=== PATIENT | female | born 1945 | race Caucasian/White ===

== ENCOUNTER 2017-02-28 22:00 | Inpatient (IN) ==
[2017-03-01] MEDS: *HR* HYDROcodone/Acet 7.5/325 mg TABLET PO PRN ×4 (05:16→20:35)
[2017-03-01 05:32] LABS: INR 1.5; Prothrombin Time 16.8 Seconds (9.4-12.1)
[2017-03-01 05:35] LABS: Basophils % 0.3 %; Eosinophils # 0.1 K/mcL (0.0-0.6); Eosinophils % 1.6 %; Hematocrit 32.4 % (35.3-44.9); Hemoglobin 10.7 g/dL (11.5-15.4); Immature Granulocytes % 0.9 % (0-4); Lymphocytes # 1.3 K/mcL (0.6-4.6); Lymphocytes % 18.9 %; Mean Corpuscular Hemoglobin 30.4 pg (28.0-33.3); Mean Platelet Volume 11.2 fL (9.4-12.4); Monocytes # 0.7 K/mcL (0.0-1.3); Monocytes % 9.8 %; Neutrophils # 4.7 K/mcL (1.6-8.9); Platelet Count 134 K/mcL (140-400); Red Blood Count 3.52 M/mcL (3.82-4.97); Red Cell Distribution Width 16.1 % (11.5-14.5); Segmented Neutrophils % 68.5 %
[2017-03-01 05:43] LABS: Calcium 8.6 mg/dL (8.6-10.8); Potassium 4.5 mEq/L (3.5-4.5)
[2017-03-01] MEDS: *HR* Amiodarone 200 MG TABLET PO SCH (08:35)
[2017-03-01] MEDS: Cholecalciferol (D-3) 1,000 UNIT TABLET PO SCH (08:36)
[2017-03-01] MEDS: Lisinopril 20 MG TABLET PO SCH ×2 (08:36→20:35)
[2017-03-01] MEDS: Cyanocobalamin (B-12) 1,000 MCG TABLET PO SCH (08:36)
[2017-03-01] MEDS: BIOTIN 1 MG PO SCH (08:36)
--- NOTE | 2017-03-01 11:30 | Internal Med History&Physical ---
Date of Encounter: 03/01/17 Time of Encounter: 11:28 Assessment and Plan (1) Humeral surgical neck fracture Current visit: Yes Status: Acute All patient's in a sling and is nonweightbearing in the right upper extremity. Qualifiers: Qualified Code(s): S42.211S - Unspecified displaced fracture of surgical neck of right humerus, sequela (2) Inability to ambulate due to knee Current visit: Yes Status: Acute This is improving. She has been ambulated with PT today. There is a brace present. But she has a heme arthrosis of the right knee (3) Anticoagulated on Coumadin Current visit: No Status: Chronic We will start the Coumadin back which was held for 3 to (4) Acute kidney injury superimposed on chronic kidney disease Current visit: No Status: Acute We will follow renal function (5) Type 2 diabetes mellitus Current visit: No Status: Chronic Follow blood sugars Qualifiers: Chronic kidney disease stage: stage 2 (mild) (6) Hemarthrosis involving knee joint Current visit: Yes Status: Acute Hemarthrosis was noted and that is why the Coumadin was held and will be followed Qualifiers: (7) Rib fractures Current visit: No Status: Suspected Noted. States there is no pain. Qualifiers: Qualified Code(s): S22.39XD - Fracture of one rib, unspecified side, subsequent encounter for fracture with routine healing Internal Medicine - H&P: HPI Chief complaint: Multiple trauma. Admitted From: Hospital to Hospital Transfer Plans for Post Hospital Care: Home History of present illness: Ms. Wood is a 71 year old female Patient was pulling weeds in her garden when she slipped and fell landed on her right side and fractured her humerus and her knee. Past Med Surg Social Fam HX - Past Medical History Medical history: atrial fibrillation, CHF, diabetes, GERD, hyperlipidemia, hypertension, myocardial infarction, renal disease Psychiatric history: no psych history - Past Surgical History Surgical History: cholecystectomy, pacemaker/AICD - Social History Smoking Status: Former smoker Smokeless Tobacco Status: No Alcohol use: none Drug use: none - Family History Mother Living Status: Hx Family Endocrine Disorder: Yes (diabetes) Father Living Status: Hx Family Cardiac Disorders: Yes Internal Medicine - H&P: Meds Acetaminophen [Tylenol] 500 mg PO Q6H PRN 02/26/17 [History] Allopurinol [Zyloprim 100 MG] 100 mg PO BID 02/26/17 [History] Amiodarone [Cordarone] 400 mg PO QAM 02/26/17 [History] Biotin 1 mg PO DAILY 02/26/17 [History] Calcitriol [Rocaltrol] 0.25 mcg PO DAILY 02/26/17 [History] Cholecalciferol (D-3) [Vitamin D] 3,000 unit PO DAILY 02/26/17 [History] Cyanocobalamin (Vitamin B-12) [Vitamin B-12] 250 mcg PO DAILY 02/26/17 [History] Enalapril Maleate [Vasotec] 20 mg PO BID 02/26/17 [History] Furosemide [Lasix] 40 mg PO Q48H 02/26/17 [History] Metoprolol [Lopressor] 25 mg PO BID 02/26/17 [History] Omeprazole [PriLOSEC] 20 mg PO BID 02/26/17 [History] Oxycodone HCl/Acetaminophen [Percocet 5-325 mg Tablet] 1 each PO BID PRN [History] Potassium Chloride [Klor-Con 10] 10 meq PO DAILY 02/26/17 [History] Warfarin [Coumadin] 1 mg PO Q48H 02/26/17 [History] Warfarin [Coumadin] 2 mg PO Q48H 02/26/17 [History] Docusate [Colace] 100 mg PO BID PRN #30 02/28/17 [Rx] HYDROcodone/Acet 7.5/325 mg [Fraser 7.5-325 mg] 1 tab PO Q4HR PRN #25 tab [Rx] Allergies Sulfa (Sulfonamide Antibiotics) Allergy (Verified 02/26/17 14:01) Hives All Systems PM: A 10-system review of systems was performed and is negative for pertinent findings except as documented above in the HPI. - Constitutional Vitals: Temp Pulse Resp BP Pulse Ox 98.0 F 60 16 130/62 95 03/01/17 06:45 03/01/17 08:09 03/01/17 08:09 03/01/17 08:09 03/01/17 08:09 - Head Head exam: Present: normal inspection - Neck Neck exam general surgery: Present: supple, trachea midline. Absent: lymphadenopathy - Respiratory Respiratory exam: Present: CTAB. Absent: accessory muscle use, rales, rhonchi, wheezes - Cardiovascular Cardiovascular exam: Present: RRR, +S1, +S2. Absent: diastolic murmur, gallop, rubs, systolic murmur - Expanded Upper Extremities Exam Shoulder exam: Present: tenderness (Patient is in sling for upper humeral fracture) Internal Med - H&P Results - Labs CBC & Chem 7: 03/01/17 05:00 03/01/17 05:00 Labs: Short CBC 03/01/17 Range/Units 05:00 WBC 6.9 (4.3-11.1) K/mcL Hgb 10.7 L (11.5-15.4) g/dL Hct 32.4 L (35.3-44.9) % Plt Count 134 L (140-400) K/mcL Neutrophils # 4.7 (1.6-8.9) K/mcL BMP 03/01/17 05:00 Sodium 136 Potassium 4.5 Chloride 106 Carbon Dioxide 21 BUN 31 H Creatinine 1.58 H Glucose 98 Calcium 8.6 Lab looks good watch the BUN - VTE Documentation of Mechanical Device: Graduated compression elastic hosiery
[2017-03-02] MEDS: Furosemide 40 MG TABLET PO SCH (08:21)
[2017-03-02] MEDS: Cholecalciferol (D-3) 1,000 UNIT TABLET PO SCH (08:22)
[2017-03-02] MEDS: *HR* Amiodarone 200 MG TABLET PO SCH (08:23)
[2017-03-02] MEDS: Lisinopril 20 MG TABLET PO SCH ×2 (08:23→20:59)
[2017-03-02] MEDS: Cyanocobalamin (B-12) 1,000 MCG TABLET PO SCH (08:23)
[2017-03-02] MEDS: *HR* HYDROcodone/Acet 7.5/325 mg TABLET PO PRN ×3 (08:24→20:59)
[2017-03-02] MEDS: BIOTIN 1 MG PO SCH (08:24)
--- NOTE | 2017-03-02 13:08 | Internal Med Progress Note ---
Date of Encounter: 03/02/17 Time of Encounter: 12:00 - Assessment and plan (1) Humeral surgical neck fracture Current Visit: Yes Status: Acute Assessment and plan: Patient's unable to weight-bear use the arm due to the humeral fracture Qualifiers: Encounter type: subsequent encounter Fracture healing: with routine healing Qualified Code(s): S42.211D - Unspecified displaced fracture of surgical neck of right humerus, subsequent encounter for fracture with routine healing (2) Inability to ambulate due to knee Current Visit: Yes Status: Acute Assessment and plan: Unable to weight-bear at this point due to knee injury (3) Anticoagulated on Coumadin Current Visit: No Status: Chronic Assessment and plan: After 3 days we have been instructed to restart her Coumadin (4) Acute kidney injury superimposed on chronic kidney disease Current Visit: No Status: Acute Assessment and plan: Appears to be stable (5) Type 2 diabetes mellitus Current Visit: No Status: Chronic Assessment and plan: Watchers being followed Qualifiers: Chronic kidney disease stage: stage 2 (mild) Qualified Code(s): E11.22 - Type 2 diabetes mellitus with diabetic chronic kidney disease; N18.2 - Chronic kidney disease, stage 2 (mild); Z79.4 - termite renewal inspector (current) use of insulin (6) Hemarthrosis involving knee joint Current Visit: Yes Status: Acute Assessment and plan: This is probably what is causing the pain and knee problem Qualifiers: (7) Rib fractures Current Visit: No Status: Suspected Assessment and plan: Denies any pain in the ribs Qualifiers: Qualified Code(s): S22.39XD - Fracture of one rib, unspecified side, subsequent encounter for fracture with routine healing - Time Spent With Patient less than 15 minutes - Subjective Interval history: Patient's here for rehabilitation is no complaints and doing okay - Constitutional Vitals: Temp Pulse Resp BP Pulse Ox 98.1 F 65 16 147/73 95 03/02/17 07:52 03/02/17 08:09 03/02/17 08:09 03/02/17 08:09 03/02/17 08:09 - Head Head exam: Present: atraumatic, normal inspection, normocephalic - Neck Neck exam general surgery: Present: supple, trachea midline. Absent: lymphadenopathy - Respiratory Respiratory exam: Present: CTAB. Absent: accessory muscle use, rales, rhonchi, wheezes - Expanded Upper Extremities Exam Upper Arm exam: Present: swelling, tenderness (She has fractured humerus with sling.) Internal Medicine: Result - Labs CBC & Chem 7: 03/01/17 05:00 03/01/17 05:00 Labs: Labs okay I will follow the general BUN/creatinine - ABG Interpretation ABG results: PT/INR, D-dimer PT 16.8 Seconds (9.4-12.1) H 03/01/17 05:00 - VTE Documentation of Mechanical Device: Graduated compression elastic hosiery Consult Discharge Plan - Plan Referrals: Gia Bishop MD [Primary Care Provider] -
[2017-03-02] MEDS: MOM Conc 10 ML UD.LIQ PO SCH (20:59)
[2017-03-03] MEDS: *HR* HYDROcodone/Acet 7.5/325 mg TABLET PO PRN ×3 (02:44→20:04)
[2017-03-03] MEDS: BIOTIN 1 MG PO SCH (08:24)
[2017-03-03] MEDS: Cyanocobalamin (B-12) 1,000 MCG TABLET PO SCH (08:41)
[2017-03-03] MEDS: Lisinopril 20 MG TABLET PO SCH ×2 (08:41→20:03)
[2017-03-03] MEDS: Cholecalciferol (D-3) 1,000 UNIT TABLET PO SCH (08:41)
[2017-03-03] MEDS: *HR* Amiodarone 200 MG TABLET PO SCH (08:42)
[2017-03-03] MEDS: MOM Conc 10 ML UD.LIQ PO SCH (20:03)
[2017-03-04 05:42] LABS: Basophils % 0.7 %; Eosinophils # 0.1 K/mcL (0.0-0.6); Hematocrit 29.9 % (35.3-44.9); Immature Granulocytes % 0.5 % (0-4); Lymphocytes # 1.4 K/mcL (0.6-4.6); Lymphocytes % 23.4 %; Mean Corpuscular HGB Conc 33.4 g/dL (31.6-35.5); Mean Corpuscular Hemoglobin 30.6 pg (28.0-33.3); Mean Corpuscular Volume 91.4 fL (83.0-100.0); Mean Platelet Volume 12.2 fL (9.4-12.4); Monocytes # 0.5 K/mcL (0.0-1.3); Monocytes % 8.2 %; Platelet Count 160 K/mcL (140-400); Red Blood Count 3.27 M/mcL (3.82-4.97); Red Cell Distribution Width 16.2 % (11.5-14.5); Segmented Neutrophils % 65.2 %
[2017-03-04] MEDS: *HR* HYDROcodone/Acet 7.5/325 mg TABLET PO PRN (05:47)
[2017-03-04 05:54] LABS: Calcium 8.5 mg/dL (8.6-10.8)
[2017-03-04] MEDS: Ondansetron ODT 4 MG TAB.RAPDIS SL PRN (06:50)
[2017-03-04] MEDS: Lisinopril 20 MG TABLET PO SCH ×2 (08:54→21:32)
[2017-03-04] MEDS: Cholecalciferol (D-3) 1,000 UNIT TABLET PO SCH (08:54)
[2017-03-04] MEDS: *HR* Amiodarone 200 MG TABLET PO SCH (08:55)
[2017-03-04] MEDS: Furosemide 40 MG TABLET PO SCH (08:55)
[2017-03-04] MEDS: Cyanocobalamin (B-12) 1,000 MCG TABLET PO SCH (08:55)
[2017-03-04] MEDS: BIOTIN 1 MG PO SCH (08:56)
[2017-03-04] MEDS: *HR* OxyCODONE/APAP 5/325 TABLET PO PRN ×2 (13:19→21:33)
[2017-03-04] MEDS ORDERED: *HR* Warfarin 7.5 MG TABLET PO ONE (14:24)
--- NOTE | 2017-03-04 14:50 | Internal Med Progress Note ---
Date of Encounter: 03/04/17 Time of Encounter: 14:48 - Assessment and plan (1) Humeral surgical neck fracture Current Visit: Yes Status: Acute Assessment and plan: Nonweightbearing due to the humeral fracture Qualifiers: Encounter type: subsequent encounter Fracture healing: with routine healing Qualified Code(s): S42.211D - Unspecified displaced fracture of surgical neck of right humerus, subsequent encounter for fracture with routine healing (2) Inability to ambulate due to knee Current Visit: Yes Status: Acute Assessment and plan: Hemarthrosis of the knee (3) Anticoagulated on Coumadin Current Visit: No Status: Chronic Assessment and plan: This was held due to the hemarthrosis of the knee (4) Acute kidney injury superimposed on chronic kidney disease Current Visit: No Status: Acute Assessment and plan: Hemarthrosis and some chronic kidney disease (5) Type 2 diabetes mellitus Current Visit: No Status: Chronic Assessment and plan: Will follow Qualifiers: Chronic kidney disease stage: stage 2 (mild) Qualified Code(s): E11.22 - Type 2 diabetes mellitus with diabetic chronic kidney disease; N18.2 - Chronic kidney disease, stage 2 (mild); 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 Qualifiers: (7) Rib fractures Current Visit: No Status: Suspected Assessment and plan: Fractures but she is not complaining much of any pain really Qualifiers: Rib fracture type: multiple ribs Qualified Code(s): S22.41XD - Multiple fractures of ribs, right side, subsequent encounter for fracture with routine healing - Time Spent With Patient less than 15 minutes - Subjective Interval history: Patient's here for rehabilitation is no complaints and doing okay patient's only complaint was an upset tummy this morning and she thinks that was from taking medication of the stomach. - Constitutional Vitals: Temp Pulse Resp BP Pulse Ox 97.9 F 62 16 119/67 96 03/04/17 07:01 03/04/17 12:56 03/04/17 12:56 03/04/17 12:56 03/04/17 12:56 - Head Head exam: Present: atraumatic, normal inspection, normocephalic - Neck Neck exam general surgery: Present: supple, trachea midline. Absent: lymphadenopathy - Respiratory Respiratory exam: Present: CTAB. Absent: accessory muscle use, rales, rhonchi, wheezes - Cardiovascular Cardiovascular exam: Present: RRR, +S1, +S2. Absent: diastolic murmur, gallop, rubs, systolic murmur Internal Medicine: Result - Labs CBC & Chem 7: 03/04/17 05:10 03/04/17 05:10 Labs: Short CBC 03/04/17 Range/Units 05:10 WBC 6.1 (4.3-11.1) K/mcL Hgb 10.0 L (11.5-15.4) g/dL Hct 29.9 L (35.3-44.9) % Plt Count 160 (140-400) K/mcL Neutrophils # 4.0 (1.6-8.9) K/mcL BMP 03/04/17 05:10 Sodium 135 L Potassium 6.0 H Chloride 106 Carbon Dioxide 22 BUN 68 H Creatinine 2.44 H Glucose 94 Calcium 8.5 L Will watch the lab little bit concerned about the renal function. - ABG Interpretation ABG results: PT/INR, D-dimer PT 16.8 Seconds (9.4-12.1) H 03/01/17 05:00 - VTE Documentation of Mechanical Device: Graduated compression elastic hosiery Consult Discharge Plan - Plan Referrals: Gia Bishop MD [Primary Care Provider] -
[2017-03-04] MEDS: MOM Conc 10 ML UD.LIQ PO SCH (21:32)
[2017-03-05 05:56] LABS: Calcium 8.4 mg/dL (8.6-10.8); Potassium 6.4 mEq/L (3.5-4.5)
[2017-03-05] MEDS: Cholecalciferol (D-3) 1,000 UNIT TABLET PO SCH (08:36)
[2017-03-05] MEDS: Cyanocobalamin (B-12) 1,000 MCG TABLET PO SCH (08:36)
[2017-03-05] MEDS: Lisinopril 20 MG TABLET PO SCH ×2 (08:36→20:41)
[2017-03-05] MEDS: *HR* Amiodarone 200 MG TABLET PO SCH (08:37)
[2017-03-05] MEDS: BIOTIN 1 MG PO SCH (08:37)
[2017-03-05] MEDS: *HR* OxyCODONE/APAP 5/325 TABLET PO PRN ×2 (10:31→20:42)
[2017-03-05] MEDS ORDERED: *HR* Warfarin 7.5 MG TABLET PO ONE (11:52)
[2017-03-05] MEDS: *HR* HYDROcodone/Acet 7.5/325 mg TABLET PO PRN (13:48)
--- NOTE | 2017-03-05 13:48 | Internal Med Progress Note ---
Date of Encounter: 03/05/17 Time of Encounter: 13:46 - Assessment and plan (1) Humeral surgical neck fracture Current Visit: Yes Status: Acute Assessment and plan: Patient is here status post surgical neck fracture. Qualifiers: Encounter type: subsequent encounter Fracture healing: with routine healing Qualified Code(s): S42.211D - Unspecified displaced fracture of surgical neck of right humerus, subsequent encounter for fracture with routine healing (2) Inability to ambulate due to knee Current Visit: Yes Status: Acute Assessment and plan: Patient was diagnosed with hemarthrosis of the knee (3) Anticoagulated on Coumadin Current Visit: No Status: Chronic Assessment and plan: Started back yesterday on Coumadin. Following (4) Acute kidney injury superimposed on chronic kidney disease Current Visit: No Status: Acute Assessment and plan: This was noted chronic renal insufficiency (5) Type 2 diabetes mellitus Current Visit: No Status: Chronic Assessment and plan: Diabetes sugars are followed. Qualifiers: Chronic kidney disease stage: stage 2 (mild) Qualified Code(s): E11.22 - Type 2 diabetes mellitus with diabetic chronic kidney disease; N18.2 - Chronic kidney disease, stage 2 (mild); Z79.4 - truck terminal manager (current) use of insulin (6) Hemarthrosis involving knee joint Current Visit: Yes Status: Acute Assessment and plan: Irritable Qualifiers: Qualified Code(s): M25.061 - Hemarthrosis, right knee (7) Rib fractures Current Visit: Yes Status: Suspected Assessment and plan: He has no complaints of rib pain. Qualifiers: Rib fracture type: multiple ribs Qualified Code(s): S22.41XD - Multiple fractures of ribs, right side, subsequent encounter for fracture with routine healing - Time Spent With Patient less than 15 minutes - Subjective Interval history: Patient's here for rehabilitation is no complaints and doing okay patient's only complaint was an upset tummy this morning and she thinks that was from taking medication of the stomach. Dissipating with all of the therapist and doing well trouble if she is nonweightbearing at this point - Constitutional Vitals: Temp Pulse Resp BP Pulse Ox 98.2 F 63 16 140/55 96 03/05/17 07:00 03/05/17 07:00 03/05/17 07:00 03/05/17 07:00 03/05/17 07:00 - Head Head exam: Present: atraumatic, normal inspection, normocephalic - Neck Neck exam general surgery: Present: supple, trachea midline. Absent: lymphadenopathy - Respiratory Respiratory exam: Present: CTAB. Absent: accessory muscle use, rales, rhonchi, wheezes - Cardiovascular Cardiovascular exam: Present: RRR, +S1, +S2. Absent: diastolic murmur, gallop, rubs, systolic murmur Internal Medicine: Result - Labs CBC & Chem 7: 03/04/17 05:10 03/05/17 05:30 Labs: BMP 03/05/17 05:30 Sodium 138 Potassium 6.4 H Chloride 106 Carbon Dioxide 27 BUN 68 H Creatinine 2.62 H Glucose 91 Calcium 8.4 L She has a chronic renal failure - ABG Interpretation ABG results: PT/INR, D-dimer PT 16.8 Seconds (9.4-12.1) H 03/01/17 05:00 - VTE Documentation of Mechanical Device: Graduated compression elastic hosiery Consult Discharge Plan - Plan Referrals: Gia Bishop MD [Primary Care Provider] -
[2017-03-05] MEDS: *HR* Warfarin 5 MG TABLET PO SCH (17:00)
[2017-03-05] MEDS: MOM Conc 10 ML UD.LIQ PO SCH (20:41)
[2017-03-06 05:36] LABS: INR 1.5; Prothrombin Time 16.5 Seconds (9.4-12.1)
[2017-03-06] MEDS: *HR* HYDROcodone/Acet 7.5/325 mg TABLET PO PRN (08:11)
[2017-03-06] MEDS: *HR* Amiodarone 200 MG TABLET PO SCH (08:12)
[2017-03-06] MEDS: Cholecalciferol (D-3) 1,000 UNIT TABLET PO SCH (08:12)
[2017-03-06] MEDS: Furosemide 40 MG TABLET PO SCH (08:13)
[2017-03-06] MEDS: BIOTIN 1 MG PO SCH (08:13)
[2017-03-06] MEDS: Lisinopril 20 MG TABLET PO SCH (08:13)
[2017-03-06] MEDS: Cyanocobalamin (B-12) 1,000 MCG TABLET PO SCH (08:13)
[2017-03-06] MEDS: Ondansetron ODT 4 MG TAB.RAPDIS SL PRN (09:02)
--- NOTE | 2017-03-06 11:22 | Internal Med Progress Note ---
Date of Encounter: 03/06/17 Time of Encounter: 11:20 - Assessment and plan (1) Humeral surgical neck fracture Current Visit: Yes Status: Acute Qualifiers: Encounter type: subsequent encounter Fracture healing: with routine healing Qualified Code(s): S42.211D - Unspecified displaced fracture of surgical neck of right humerus, subsequent encounter for fracture with routine healing (2) Inability to ambulate due to knee Current Visit: Yes Status: Acute Assessment and plan: Patient had a hemarthrosis of the knee. She was on Coumadin. It was held but we have restarted it in the INR is 1.5 (3) Anticoagulated on Coumadin Current Visit: No Status: Chronic Assessment and plan: See above (4) Acute kidney injury superimposed on chronic kidney disease Current Visit: No Status: Acute Assessment and plan: Following kidney function (5) Type 2 diabetes mellitus Current Visit: No Status: Chronic Assessment and plan: On blood sugars Qualifiers: Chronic kidney disease stage: stage 2 (mild) Qualified Code(s): E11.22 - Type 2 diabetes mellitus with diabetic chronic kidney disease; N18.2 - Chronic kidney disease, stage 2 (mild); Z79.4 - long-term (current) use of insulin (6) Hemarthrosis involving knee joint Current Visit: Yes Status: Acute Assessment and plan: As noted above Qualifiers: Qualified Code(s): M25.061 - Hemarthrosis, right knee (7) Rib fractures Current Visit: Yes Status: Suspected Assessment and plan: Patient is to complain of these. Qualifiers: Rib fracture type: multiple ribs Qualified Code(s): S22.41XD - Multiple fractures of ribs, right side, subsequent encounter for fracture with routine healing - Time Spent With Patient less than 15 minutes - Subjective Interval history: She had some brief symptomatic hypotension. She states that she has had trouble with low blood pressure. Taking a significant amount of YULIYA inhibitor lisinopril. We will hold that right now nurses held her blood pressure medicine this morning. States she feels okay now and will remain we might be elevated to resume therapy after lunch. - Constitutional Vitals: Temp Pulse Resp BP Pulse Ox 97.8 F 60 16 94/55 96 03/06/17 07:16 03/06/17 09:30 03/06/17 07:16 03/06/17 09:30 03/06/17 07:16 - Head Head exam: Present: atraumatic, normal inspection, normocephalic - Neck Neck exam general surgery: Present: supple, trachea midline. Absent: lymphadenopathy - Respiratory Respiratory exam: Present: CTAB. Absent: accessory muscle use, rales, rhonchi, wheezes - Cardiovascular Cardiovascular exam: Present: RRR, +S1, +S2. Absent: diastolic murmur, gallop, rubs, systolic murmur Internal Medicine: Result - Labs CBC & Chem 7: 03/04/17 05:10 03/05/17 05:30 Labs: Hour BUN is unchanged her creatinines up slightly I am holding her Lasix. If blood pressure does not become an acceptable level and may have to give her some fluid - ABG Interpretation ABG results: PT/INR, D-dimer PT 16.5 Seconds (9.4-12.1) H 03/06/17 05:25 - VTE Documentation of Mechanical Device: Graduated compression elastic hosiery Consult Discharge Plan - Plan Referrals: Gia Bishop MD [Primary Care Provider] -
[2017-03-06] MEDS: 0.9 % Sodium Chloride 1,000 ML IVC SCH (16:19)
[2017-03-06] MEDS: *HR* Warfarin 5 MG TABLET PO SCH (17:08)
[2017-03-06] MEDS: MOM Conc 10 ML UD.LIQ PO SCH (19:44)
[2017-03-07] MEDS: *HR* HYDROcodone/Acet 7.5/325 mg TABLET PO PRN ×3 (02:38→17:52)
[2017-03-07] MEDS: 0.9 % Sodium Chloride 1,000 ML IVC SCH (05:03)
[2017-03-07 05:25] LABS: INR 2.3
[2017-03-07 07:00] LABS: Potassium 5.3 mEq/L (3.5-4.5)
[2017-03-07] MEDS: Cholecalciferol (D-3) 1,000 UNIT TABLET PO SCH (10:02)
[2017-03-07] MEDS: *HR* Amiodarone 200 MG TABLET PO SCH (10:02)
[2017-03-07] MEDS: BIOTIN 1 MG PO SCH (10:03)
[2017-03-07] MEDS: Cyanocobalamin (B-12) 1,000 MCG TABLET PO SCH (10:03)
--- NOTE | 2017-03-07 14:11 | Internal Med Progress Note ---
Date of Encounter: 03/07/17 Time of Encounter: 14:09 - Assessment and plan (1) Humeral surgical neck fracture Current Visit: Yes Status: Acute Assessment and plan: Patient's nonweightbearing on the affected side Qualifiers: Encounter type: subsequent encounter Fracture healing: with routine healing Qualified Code(s): S42.211D - Unspecified displaced fracture of surgical neck of right humerus, subsequent encounter for fracture with routine healing (2) Inability to ambulate due to knee Current Visit: Yes Status: Acute Assessment and plan: Doing better but patient had a hemarthrosis from her fall (3) Anticoagulated on Coumadin Current Visit: No Status: Chronic Assessment and plan: INR is up to 2.3 (4) Acute kidney injury superimposed on chronic kidney disease Current Visit: No Status: Acute Assessment and plan: Watching kidney function (5) Type 2 diabetes mellitus Current Visit: No Status: Chronic Qualifiers: Chronic kidney disease stage: stage 2 (mild) Qualified Code(s): E11.22 - Type 2 diabetes mellitus with diabetic chronic kidney disease; N18.2 - Chronic kidney disease, stage 2 (mild); Z79.4 - superintendent terminal (current) use of insulin (6) Hemarthrosis involving knee joint Current Visit: Yes Status: Acute Assessment and plan: Reason for problems with ambulation Qualifiers: Qualified Code(s): M25.061 - Hemarthrosis, right knee (7) Rib fractures Current Visit: Yes Status: Suspected Assessment and plan: No complaints about the rib fracture Qualifiers: Rib fracture type: multiple ribs Qualified Code(s): S22.41XD - Multiple fractures of ribs, right side, subsequent encounter for fracture with routine healing - Time Spent With Patient less than 15 minutes - Subjective Interval history: No [place] obligations today blood pressure was up at lunchtime. The IV and follow her - Constitutional Vitals: Temp Pulse Resp BP Pulse Ox 97.7 F 60 18 138/98 99 03/07/17 11:23 03/07/17 11:23 03/07/17 11:23 03/07/17 11:23 03/07/17 11:23 - Head Head exam: Present: atraumatic, normal inspection, normocephalic - Neck Neck exam general surgery: Present: supple, trachea midline. Absent: lymphadenopathy - Respiratory Respiratory exam: Present: CTAB. Absent: accessory muscle use, rales, rhonchi, wheezes - Cardiovascular Cardiovascular exam: Present: RRR, +S1, +S2. Absent: diastolic murmur, gallop, rubs, systolic murmur Internal Medicine: Result - Labs CBC & Chem 7: 03/04/17 05:10 03/07/17 06:27 Labs: BMP 03/07/17 06:27 Sodium 138 Potassium 5.3 H D Chloride 108 Carbon Dioxide 22 BUN 67 H Creatinine 2.69 H Glucose 92 Calcium 8.0 L Even after all at little slight increases in the BUN and creatinine - ABG Interpretation ABG results: PT/INR, D-dimer PT 25.0 Seconds (9.4-12.1) H D 03/07/17 05:05 - VTE Documentation of Mechanical Device: Graduated compression elastic hosiery Consult Discharge Plan - Plan Referrals: Gia Bishop MD [Primary Care Provider] -
[2017-03-07] MEDS: *HR* Warfarin 5 MG TABLET PO SCH (17:52)
[2017-03-07] MEDS: MOM Conc 10 ML UD.LIQ PO SCH (20:54)
[2017-03-08 05:31] LABS: INR 2.5; Prothrombin Time 27.8 Seconds (9.4-12.1)
[2017-03-08] MEDS: *HR* HYDROcodone/Acet 7.5/325 mg TABLET PO PRN ×2 (05:35→10:27)
[2017-03-08] MEDS: Cyanocobalamin (B-12) 1,000 MCG TABLET PO SCH (08:32)
[2017-03-08] MEDS: *HR* Amiodarone 200 MG TABLET PO SCH (08:32)
[2017-03-08] MEDS: BIOTIN 1 MG PO SCH (08:33)
[2017-03-08] MEDS: Cholecalciferol (D-3) 1,000 UNIT TABLET PO SCH (08:33)
--- NOTE | 2017-03-08 14:14 | Internal Med Progress Note ---
Date of Encounter: 03/08/17 Time of Encounter: 14:12 - Assessment and plan (1) Humeral surgical neck fracture Current Visit: Yes Status: Acute Assessment and plan: Patient is in rehabilitation for the above-mentioned surgical neck fracture plus she had heme arthritis to the knee and some rib fracture Qualifiers: Encounter type: subsequent encounter Fracture healing: with routine healing Qualified Code(s): S42.211D - Unspecified displaced fracture of surgical neck of right humerus, subsequent encounter for fracture with routine healing (2) Inability to ambulate due to knee Current Visit: Yes Status: Acute (3) Anticoagulated on Coumadin Current Visit: No Status: Chronic Assessment and plan: Patient had her Coumadin held due to the hemarthrosis (4) Acute kidney injury superimposed on chronic kidney disease Current Visit: No Status: Acute Assessment and plan: I follow renal function. It obviously is a chronic condition (5) Type 2 diabetes mellitus Current Visit: No Status: Chronic Assessment and plan: Following blood sugars Qualifiers: Chronic kidney disease stage: stage 2 (mild) Qualified Code(s): E11.22 - Type 2 diabetes mellitus with diabetic chronic kidney disease; N18.2 - Chronic kidney disease, stage 2 (mild); Z79.4 - FDC (current) use of insulin (6) Hemarthrosis involving knee joint Current Visit: Yes Status: Acute Assessment and plan: As mentioned above Qualifiers: Qualified Code(s): M25.061 - Hemarthrosis, right knee (7) Rib fractures Current Visit: Yes Status: Suspected Qualifiers: Rib fracture type: multiple ribs Qualified Code(s): S22.41XD - Multiple fractures of ribs, right side, subsequent encounter for fracture with routine healing - Time Spent With Patient less than 15 minutes - Subjective Interval history: Blood pressure is still little bit labile. Overall though the patient is doing better and is not symptomatic. I am going to follow the renal function. - Constitutional Vitals: Temp Pulse Resp BP Pulse Ox 98.1 F 60 16 99/56 94 03/08/17 06:53 03/08/17 06:53 03/08/17 06:53 03/08/17 06:53 03/08/17 06:53 Internal Medicine: Result - Labs CBC & Chem 7: 03/04/17 05:10 03/07/17 06:27 Labs: Will follow creatinine - ABG Interpretation ABG results: PT/INR, D-dimer PT 27.8 Seconds (9.4-12.1) H 03/08/17 05:00 - VTE Documentation of Mechanical Device: Graduated compression elastic hosiery Consult Discharge Plan - Plan Referrals: Gia Bishop MD [Primary Care Provider] -
[2017-03-08] MEDS: *HR* Warfarin 5 MG TABLET PO SCH (17:21)
[2017-03-08] MEDS: MOM Conc 10 ML UD.LIQ PO SCH (21:07)
[2017-03-09 05:33] LABS: INR 3.4; Prothrombin Time 37.9 Seconds (9.4-12.1)
[2017-03-09 05:42] LABS: Calcium 8.5 mg/dL (8.6-10.8)
[2017-03-09] MEDS: BIOTIN 1 MG PO SCH (07:40)
[2017-03-09] MEDS: *HR* Amiodarone 200 MG TABLET PO SCH (08:48)
[2017-03-09] MEDS: Cholecalciferol (D-3) 1,000 UNIT TABLET PO SCH (08:48)
[2017-03-09] MEDS: Cyanocobalamin (B-12) 1,000 MCG TABLET PO SCH (08:48)
[2017-03-09] MEDS: *HR* HYDROcodone/Acet 7.5/325 mg TABLET PO PRN (12:28)
[2017-03-09] MEDS: *HR* Warfarin 5 MG TABLET PO SCH (13:08)
--- NOTE | 2017-03-09 13:41 | Internal Med Progress Note ---
Date of Encounter: 03/09/17 Time of Encounter: 13:39 - Assessment and plan (1) Humeral surgical neck fracture Current Visit: Yes Status: Acute Assessment and plan: Working with the therapist. Qualifiers: Encounter type: subsequent encounter Fracture healing: with routine healing Qualified Code(s): S42.211D - Unspecified displaced fracture of surgical neck of right humerus, subsequent encounter for fracture with routine healing (2) Inability to ambulate due to knee Current Visit: Yes Status: Acute (3) Anticoagulated on Coumadin Current Visit: No Status: Chronic (4) Acute kidney injury superimposed on chronic kidney disease Current Visit: No Status: Acute Assessment and plan: Noted an improved (5) Type 2 diabetes mellitus Current Visit: No Status: Chronic Assessment and plan: Following blood sugars Qualifiers: Chronic kidney disease stage: stage 2 (mild) Qualified Code(s): E11.22 - Type 2 diabetes mellitus with diabetic chronic kidney disease; N18.2 - Chronic kidney disease, stage 2 (mild); Z79.4 - [facility] (current) use of insulin (6) Hemarthrosis involving knee joint Current Visit: Yes Status: Acute Qualifiers: Qualified Code(s): M25.061 - Hemarthrosis, right knee (7) Rib fractures Current Visit: Yes Status: Suspected Qualifiers: Rib fracture type: multiple ribs Qualified Code(s): S22.41XD - Multiple fractures of ribs, right side, subsequent encounter for fracture with routine healing - Subjective Interval history: Blood pressure is still little bit labile. Overall though the patient is doing better and is not symptomatic. I am going to follow the renal function. Mild nausea but the patient did eat lunch - Constitutional Vitals: Temp Pulse Resp BP Pulse Ox 98.4 F 60 16 136/82 97 03/09/17 07:19 03/09/17 07:19 03/09/17 07:19 03/09/17 07:19 03/09/17 07:19 General appearance: Present: pleasant, answers questions appropriately - Head Head exam: Present: atraumatic, normal inspection, normocephalic - Neck Neck exam general surgery: Present: supple, trachea midline. Absent: lymphadenopathy - Respiratory Respiratory exam: Present: CTAB. Absent: accessory muscle use, rales, rhonchi, wheezes - Cardiovascular Cardiovascular exam: Present: RRR, +S1, +S2. Absent: diastolic murmur, gallop, rubs, systolic murmur - GI/Abdominal GI/Abdominal exam: Present: normal bowel sounds, soft, no peritoneal signs. Absent: distended, tenderness Internal Medicine: Result - Labs CBC & Chem 7: 03/04/17 05:10 03/09/17 05:00 Labs: BMP 03/09/17 05:00 Sodium 140 Potassium 5.0 H Chloride 111 H Carbon Dioxide 23 BUN 43 H D Creatinine 1.65 H Glucose 91 Calcium 8.5 L INR is up to 4.370 Coumadin tonight start lower dose tomorrow and the patient is much improved her BUN and creatinine with the addition of the fluid. This would be DC'd. - ABG Interpretation ABG results: PT/INR, D-dimer PT 37.9 Seconds (9.4-12.1) H 03/09/17 05:00 - VTE Documentation of Mechanical Device: Graduated compression elastic hosiery Consult Discharge Plan - Plan Referrals: Gia Bishop MD [Primary Care Provider] -
[2017-03-09] MEDS ORDERED: Warfarin perPT PO PRN (18:00)
[2017-03-09] MEDS: *HR* OxyCODONE/APAP 5/325 TABLET PO PRN (20:08)
[2017-03-09] MEDS: MOM Conc 10 ML UD.LIQ PO SCH (20:08)
[2017-03-10 05:43] LABS: INR 3.7; Prothrombin Time 40.6 Seconds (9.4-12.1)
[2017-03-10] MEDS: *HR* HYDROcodone/Acet 7.5/325 mg TABLET PO PRN (08:36)
[2017-03-10] MEDS: *HR* Amiodarone 200 MG TABLET PO SCH (08:36)
[2017-03-10] MEDS: Cholecalciferol (D-3) 1,000 UNIT TABLET PO SCH (08:36)
[2017-03-10] MEDS: BIOTIN 1 MG PO SCH (08:37)
[2017-03-10] MEDS: Cyanocobalamin (B-12) 1,000 MCG TABLET PO SCH (08:37)
--- NOTE | 2017-03-10 11:28 | Internal Med Progress Note ---
Date of Encounter: 03/10/17 Time of Encounter: 11:26 - Assessment and plan (1) Humeral surgical neck fracture Current Visit: Yes Status: Acute Assessment and plan: Patient's here for this along with other injury she suffered a fall. Qualifiers: Encounter type: subsequent encounter Fracture healing: with routine healing Qualified Code(s): S42.211D - Unspecified displaced fracture of surgical neck of right humerus, subsequent encounter for fracture with routine healing (2) Inability to ambulate due to knee Current Visit: Yes Status: Acute Assessment and plan: Patient has a hemarthrosis of the knee (3) Anticoagulated on Coumadin Current Visit: No Status: Chronic (4) Acute kidney injury superimposed on chronic kidney disease Current Visit: No Status: Acute Assessment and plan: Noted but it was improved with some fluid (5) Type 2 diabetes mellitus Current Visit: No Status: Chronic Assessment and plan: Ali blood sugar Qualifiers: Chronic kidney disease stage: stage 2 (mild) Qualified Code(s): E11.22 - Type 2 diabetes mellitus with diabetic chronic kidney disease; N18.2 - Chronic kidney disease, stage 2 (mild); Z79.4 - termite helper (current) use of insulin (6) Hemarthrosis involving knee joint Current Visit: Yes Status: Acute Assessment and plan: Noted above Qualifiers: Qualified Code(s): M25.061 - Hemarthrosis, right knee (7) Rib fractures Current Visit: Yes Status: Suspected Assessment and plan: No complaints about rib fractures Qualifiers: Rib fracture type: multiple ribs Qualified Code(s): S22.41XD - Multiple fractures of ribs, right side, subsequent encounter for fracture with routine healing - Time Spent With Patient less than 15 minutes - Subjective Interval history: Patient smiling colors good states she feel good today - Constitutional Vitals: Temp Pulse Resp BP Pulse Ox 98.1 F 60 16 137/67 96 03/10/17 08:00 03/10/17 08:00 03/10/17 08:00 03/10/17 08:00 03/10/17 08:00 General appearance: Present: pleasant, answers questions appropriately - Head Head exam: Present: atraumatic, normal inspection, normocephalic - Neck Neck exam general surgery: Present: supple, trachea midline. Absent: lymphadenopathy - Respiratory Respiratory exam: Present: CTAB. Absent: accessory muscle use, rales, rhonchi, wheezes - Cardiovascular Cardiovascular exam: Present: RRR, +S1, +S2. Absent: diastolic murmur, gallop, rubs, systolic murmur Internal Medicine: Result - Labs CBC & Chem 7: 03/04/17 05:10 03/09/17 05:00 Labs: The renal functions improved - ABG Interpretation ABG results: PT/INR, D-dimer PT 40.6 Seconds (9.4-12.1) H 03/10/17 05:20 - VTE Documentation of Mechanical Device: Graduated compression elastic hosiery Consult Discharge Plan - Plan Referrals: Gia Bishop MD [Primary Care Provider] -
[2017-03-10] MEDS: *HR* OxyCODONE/APAP 5/325 TABLET PO PRN (22:13)
[2017-03-10] MEDS: MOM Conc 10 ML UD.LIQ PO SCH (22:14)
[2017-03-11 05:43] LABS: Basophils % 0.6 %; Eosinophils # 0.1 K/mcL (0.0-0.6); Eosinophils % 2.5 %; Hematocrit 27.3 % (35.3-44.9); Hemoglobin 9.1 g/dL (11.5-15.4); Immature Granulocytes % 0.3 % (0-4); Lymphocytes # 0.7 K/mcL (0.6-4.6); Lymphocytes % 19.6 %; Mean Corpuscular HGB Conc 33.3 g/dL (31.6-35.5); Mean Corpuscular Hemoglobin 30.8 pg (28.0-33.3); Mean Corpuscular Volume 92.5 fL (83.0-100.0); Mean Platelet Volume 11.6 fL (9.4-12.4); Monocytes # 0.3 K/mcL (0.0-1.3); Monocytes % 6.9 %; Neutrophils # 2.5 K/mcL (1.6-8.9); Platelet Count 131 K/mcL (140-400); Red Blood Count 2.95 M/mcL (3.82-4.97); Red Cell Distribution Width 16.5 % (11.5-14.5); Segmented Neutrophils % 70.1 %
[2017-03-11 05:44] LABS: INR 3.8
[2017-03-11 05:57] LABS: Calcium 8.2 mg/dL (8.6-10.8); Potassium 4.4 mEq/L (3.5-4.5)
[2017-03-11] MEDS: *HR* OxyCODONE/APAP 5/325 TABLET PO PRN ×2 (06:37→19:57)
[2017-03-11] MEDS: *HR* Amiodarone 200 MG TABLET PO SCH (08:47)
[2017-03-11] MEDS: Cholecalciferol (D-3) 1,000 UNIT TABLET PO SCH (08:47)
[2017-03-11] MEDS: Cyanocobalamin (B-12) 1,000 MCG TABLET PO SCH (08:47)
[2017-03-11] MEDS: BIOTIN 1 MG PO SCH (08:48)
[2017-03-11] MEDS: *HR* HYDROcodone/Acet 7.5/325 mg TABLET PO PRN (13:18)
--- NOTE | 2017-03-11 13:41 | Internal Med Progress Note ---
Date of Encounter: 03/11/17 Time of Encounter: 13:39 - Assessment and plan (1) Humeral surgical neck fracture Current Visit: Yes Status: Acute Assessment and plan: Unable to use that arm due to the humeral fracture Qualifiers: Encounter type: subsequent encounter Fracture healing: with routine healing Qualified Code(s): S42.211D - Unspecified displaced fracture of surgical neck of right humerus, subsequent encounter for fracture with routine healing (2) Inability to ambulate due to knee Current Visit: Yes Status: Acute Assessment and plan: Patient is now walking 40 feet. Using knee brace (3) Anticoagulated on Coumadin Current Visit: No Status: Chronic (4) Acute kidney injury superimposed on chronic kidney disease Current Visit: No Status: Acute Assessment and plan: BUN and creatinine have improved (5) Type 2 diabetes mellitus Current Visit: No Status: Chronic Assessment and plan: Blood sugars noted Qualifiers: Chronic kidney disease stage: stage 2 (mild) Qualified Code(s): E11.22 - Type 2 diabetes mellitus with diabetic chronic kidney disease; N18.2 - Chronic kidney disease, stage 2 (mild); Z79.4 - termite treater helper (current) use of insulin (6) Hemarthrosis involving knee joint Current Visit: Yes Status: Acute Assessment and plan: Apparently walking well and 40 feet with the neighbor Qualifiers: Qualified Code(s): M25.061 - Hemarthrosis, right knee (7) Rib fractures Current Visit: Yes Status: Suspected Assessment and plan: Overall improved not complaining of pain Qualifiers: Rib fracture type: multiple ribs Qualified Code(s): S22.41XD - Multiple fractures of ribs, right side, subsequent encounter for fracture with routine healing - Subjective Interval history: P appease a little concerned about her ambulation but otherwise doing well. Probable discharged - Constitutional Vitals: Temp Pulse Resp BP Pulse Ox 98.3 F 60 16 113/61 95 03/11/17 07:09 03/11/17 07:09 03/11/17 07:09 03/11/17 07:09 03/11/17 07:09 General appearance: Present: pleasant, answers questions appropriately - Head Head exam: Present: normal inspection - Neck Neck exam general surgery: Present: supple, trachea midline. Absent: lymphadenopathy - Respiratory Respiratory exam: Present: CTAB. Absent: accessory muscle use, rales, rhonchi, wheezes - Cardiovascular Cardiovascular exam: Present: RRR, +S1, +S2. Absent: diastolic murmur, gallop, rubs, systolic murmur Internal Medicine: Result - Labs CBC & Chem 7: 03/11/17 05:15 03/11/17 05:15 Labs: Short CBC 03/11/17 Range/Units 05:15 WBC 3.6 L (4.3-11.1) K/mcL Hgb 9.1 L (11.5-15.4) g/dL Hct 27.3 L (35.3-44.9) % Plt Count 131 L (140-400) K/mcL Neutrophils # 2.5 (1.6-8.9) K/mcL BMP 03/11/17 05:15 Sodium 140 Potassium 4.4 Chloride 109 Carbon Dioxide 25 BUN 23 H D Creatinine 1.39 H Glucose 85 Calcium 8.2 L Labs okay - ABG Interpretation ABG results: PT/INR, D-dimer PT 42.0 Seconds (9.4-12.1) H 03/11/17 05:15 - VTE Documentation of Mechanical Device: Graduated compression elastic hosiery Consult Discharge Plan - Plan Referrals: Gia Bishop MD [Primary Care Provider] -
[2017-03-11] MEDS: MOM Conc 10 ML UD.LIQ PO SCH (19:57)
[2017-03-12 05:45] LABS: INR 3.5; Prothrombin Time 38.6 Seconds (9.4-12.1)
[2017-03-12] MEDS: *HR* OxyCODONE/APAP 5/325 TABLET PO PRN ×2 (06:54→20:50)
[2017-03-12] MEDS: Cholecalciferol (D-3) 1,000 UNIT TABLET PO SCH (08:24)
[2017-03-12] MEDS: Furosemide 40 MG TABLET PO SCH (08:24)
[2017-03-12] MEDS: *HR* Amiodarone 200 MG TABLET PO SCH (08:24)
[2017-03-12] MEDS: BIOTIN 1 MG PO SCH (08:25)
[2017-03-12] MEDS: Cyanocobalamin (B-12) 1,000 MCG TABLET PO SCH (08:25)
[2017-03-12] MEDS: *HR* HYDROcodone/Acet 7.5/325 mg TABLET PO PRN (13:07)
--- NOTE | 2017-03-12 13:19 | Internal Med Progress Note ---
Date of Encounter: 03/12/17 Time of Encounter: 13:16 - Assessment and plan (1) Humeral surgical neck fracture Current Visit: Yes Status: Acute Qualifiers: Encounter type: subsequent encounter Fracture healing: with routine healing Qualified Code(s): S42.211D - Unspecified displaced fracture of surgical neck of right humerus, subsequent encounter for fracture with routine healing (2) Inability to ambulate due to knee Current Visit: Yes Status: Acute Assessment and plan: Patient is now ambulating. (3) Anticoagulated on Coumadin Current Visit: No Status: Chronic Assessment and plan: Ali ET INR (4) Acute kidney injury superimposed on chronic kidney disease Current Visit: No Status: Acute Assessment and plan: Much improved (5) Type 2 diabetes mellitus Current Visit: No Status: Chronic Assessment and plan: Following blood sugars Qualifiers: Chronic kidney disease stage: stage 2 (mild) Qualified Code(s): E11.22 - Type 2 diabetes mellitus with diabetic chronic kidney disease; N18.2 - Chronic kidney disease, stage 2 (mild); Z79.4 - truck terminal manager (current) use of insulin (6) Hemarthrosis involving knee joint Current Visit: Yes Status: Acute Qualifiers: Qualified Code(s): M25.061 - Hemarthrosis, right knee (7) Rib fractures Current Visit: Yes Status: Suspected Qualifiers: Rib fracture type: multiple ribs Qualified Code(s): S22.41XD - Multiple fractures of ribs, right side, subsequent encounter for fracture with routine healing - Subjective Interval history: P appease a little concerned about her ambulation but otherwise doing well. Probable discharged - Constitutional Vitals: Temp Pulse Resp BP Pulse Ox 98.2 F 60 16 139/61 96 03/12/17 07:00 03/12/17 07:00 03/12/17 07:00 03/12/17 07:00 03/12/17 07:00 General appearance: Present: pleasant, answers questions appropriately - Head Head exam: Present: atraumatic, normal inspection, normocephalic - Neck Neck exam general surgery: Present: supple, trachea midline. Absent: lymphadenopathy - Respiratory Respiratory exam: Present: CTAB. Absent: accessory muscle use, rales, rhonchi, wheezes - Cardiovascular Cardiovascular exam: Present: RRR, +S1, +S2. Absent: diastolic murmur, gallop, rubs, systolic murmur - GI/Abdominal GI/Abdominal exam: Present: normal bowel sounds, soft, no peritoneal signs. Absent: distended, tenderness Internal Medicine: Result - Labs CBC & Chem 7: 03/11/17 05:15 03/11/17 05:15 Labs: Patient is some improving again with her renal function - ABG Interpretation ABG results: PT/INR, D-dimer PT 38.6 Seconds (9.4-12.1) H 03/12/17 05:25 - VTE Documentation of Mechanical Device: Graduated compression elastic hosiery Consult Discharge Plan - Plan Referrals: Gia Bishop MD [Primary Care Provider] -
[2017-03-12] MEDS: MOM Conc 10 ML UD.LIQ PO SCH (20:51)
[2017-03-13] MEDS: *HR* OxyCODONE/APAP 5/325 TABLET PO PRN (05:36)
[2017-03-13 05:44] LABS: INR 3.2
[2017-03-13] MEDS: Cholecalciferol (D-3) 1,000 UNIT TABLET PO SCH (07:59)
[2017-03-13] MEDS: BIOTIN 1 MG PO SCH (08:00)
[2017-03-13] MEDS: *HR* Amiodarone 200 MG TABLET PO SCH (08:00)
[2017-03-13] MEDS: Cyanocobalamin (B-12) 1,000 MCG TABLET PO SCH (08:00)
--- NOTE | 2017-03-13 12:38 | Physical Med Progress Note ---
Date of Encounter: 03/13/17 Time of Encounter: 12:36 Physical Medicine-PN: Subj Interval history: PMR PCC Note Ms. Wood requires cues for sequencing gait for ambulation. She requires vocal cues for safe ambulation. She is ambulating 150 feet with a walker with SBA. We would recommend continued supervision at home for safety. Plan for discharge to home on 03/14/17. - Constitutional Vitals: Vital Signs Temp Pulse Resp BP Pulse Ox 03/13/17 08:00 97.5 F L 68 14 167/89 99 03/12/17 19:00 97.8 F 60 16 116/65 97 Intake and Output 03/12/17 03/13/17 03/13/17 23:59 07:59 15:59 Intake Total 100 / 100 100 / 100 120 / 120 Balance 100 / 100 100 / 100 120 / 120 Intake: Oral 100 / 100 100 / 100 120 / 120 Other: Meal Breakfast Percent of Meal Consumed 75% # Voids 1 Blood Glucose* 114 83 93 Physical Medicine-PN: Obj Data - Labs CBC & Chem 7: 03/11/17 05:15 03/11/17 05:15 Labs: Laboratory Results - last 24 hr 03/12/17 03/12/17 03/13/17 16:32 20:11 05:30 PT 35.0 H INR 3.2 POC Glucose 102 H 114 H 03/13/17 03/13/17 08:10 11:45 PT INR POC Glucose 83 93 H - ABG Interpretation ABG results: PT/INR, D-dimer PT 35.0 Seconds (9.4-12.1) H 03/13/17 05:30 - VTE Documentation of Mechanical Device: Graduated compression elastic hosiery Consult Discharge Plan - Plan Referrals: Gia Bishop MD [Primary Care Provider] -
[2017-03-13] MEDS: *HR* HYDROcodone/Acet 7.5/325 mg TABLET PO PRN ×2 (12:53→19:57)
--- NOTE | 2017-03-13 13:34 | Discharge Summary ---
Date of Encounter: 03/13/17 Time of Encounter: 13:32 - Discharge Diagnosis (1) Humeral surgical neck fracture Priority: Primary Status: Acute Comments: She is not allowed to use any weight with hand Qualifiers: Encounter type: subsequent encounter Fracture healing: with routine healing Qualified Code(s): S42.211D - Unspecified displaced fracture of surgical neck of right humerus, subsequent encounter for fracture with routine healing (2) Inability to ambulate due to knee Priority: Primary Status: Acute Comments: Hemarthrosis of the knee. 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 (6) Hemarthrosis involving knee joint Priority: Secondary Status: Acute Comments: Much improved Qualifiers: Qualified Code(s): M25.061 - Hemarthrosis, right knee (7) Rib fractures Priority: Secondary Status: Suspected Qualifiers: Rib fracture type: multiple ribs Qualified Code(s): S22.41XD - Multiple fractures of ribs, right side, subsequent encounter for fracture with routine healing - Discharge Medications Home Medications: Acetaminophen [Tylenol] 500 mg PO Q6H PRN 02/26/17 [History] Allopurinol [Zyloprim 100 MG] 100 mg PO BID 02/26/17 [History] Amiodarone [Cordarone] 400 mg PO QAM 02/26/17 [History] Biotin 1 mg PO DAILY 02/26/17 [History] Calcitriol [Rocaltrol] 0.25 mcg PO DAILY 02/26/17 [History] Cholecalciferol (D-3) [Vitamin D] 3,000 unit PO DAILY 02/26/17 [History] Cyanocobalamin (Vitamin B-12) [Vitamin B-12] 250 mcg PO DAILY 02/26/17 [History] Enalapril Maleate [Vasotec] 20 mg PO BID 02/26/17 [History] Furosemide [Lasix] 40 mg PO Q48H 02/26/17 [History] Metoprolol [Lopressor] 25 mg PO BID 02/26/17 [History] Omeprazole [PriLOSEC] 20 mg PO BID 02/26/17 [History] Oxycodone HCl/Acetaminophen [Percocet 5-325 mg Tablet] 1 each PO BID PRN [History] Potassium Chloride [Klor-Con 10] 10 meq PO DAILY 02/26/17 [History] Warfarin [Coumadin] 1 mg PO Q48H 02/26/17 [History] Warfarin [Coumadin] 2 mg PO Q48H 02/26/17 [History] Docusate [Colace] 100 mg PO BID PRN #30 02/28/17 [Rx] HYDROcodone/Acet 7.5/325 mg [[place] 7.5-325 mg] 1 tab PO Q4HR PRN #25 tab [Rx] Allergies/Adverse Reactions: Allergies Sulfa (Sulfonamide Antibiotics) Allergy (Verified 02/26/17 14:01) Hives Date of admission: 02/28/17 22:00 Primary care physician: Gia Bishop MD Consults: 02/28/17 23:25 Consult to Occupational Therapy [CONS] Routine Comment: Evaluate, develop and implement POC Reason for Consult: right sided multiple fractures Consult to Physical Therapy [CONS] Routine Comment: Evaluate, develop and implement POC Reason for Consult: right sided multiple fractures. Consult to Recreational Therapy [CONS] Routine Comment: Evaluate, develop and implement POC Consult to Medical Support Assistant [CONS] Routine Reason for SW Consult: Patient is a new admission. Consult to Speech Therapy [CONS] Routine Comment: Evaluate, develop and implement POC Reason for Consult: speech impairment Call Completed: Yes Discharging clinician: Andrea Allen Anticipated date of discharge: 03/14/17 - Patient Status Condition: Good Functional capacity at discharge: uses cane/walker Overall status at discharge: patient is progressing back to baseline - Discharge Instructions Follow Up With: Gia Bishop MD [Primary Care Provider] - - Diet and Activity Activity: ambulate only with your walker Diet: advance to your usual diet Interval History: Patient was brought in for recent fall with fracture of that hemarthrosis of her knee and is here for rehabilitation Hospital course: Ms. Wood is a 71 year old female Patient was brought in for rehabilitation after a fall. She will fractured humerus rib fractures and hemarthrosis of her knee was on Coumadin was held but has now been restarted. Currently walking 150 feet with standby. - Time Spent with Patient Total time spent providing and/or coordinating discharge services: Less than 30 minutes - Constitutional Vitals: Temp Pulse Resp BP Pulse Ox 97.5 F L 68 14 167/89 99 03/13/17 08:00 03/13/17 08:00 03/13/17 08:00 03/13/17 08:00 03/13/17 08:00 General appearance: Present: pleasant, answers questions appropriately - Head Head exam: Present: atraumatic, normal inspection, normocephalic - Neck Neck exam general surgery: Present: supple, trachea midline. Absent: lymphadenopathy - Respiratory Respiratory exam: Present: CTAB. Absent: accessory muscle use, rales, rhonchi, wheezes - Cardiovascular Cardiovascular exam: Present: RRR, +S1, +S2. Absent: diastolic murmur, gallop, rubs, systolic murmur - VTE Documentation of Mechanical Device: Graduated compression elastic hosiery
--- NOTE | 2017-03-13 13:40 | Physician Discharge Referral ---
Home Health/Hosp Referral Info Transfer to: Home Health Provider in Charge Post Discharge: PCP - Diagnosis (1) Humeral surgical neck fracture Priority: Primary Status: Acute (2) Inability to ambulate due to knee Priority: Secondary Status: Acute (3) Anticoagulated on Coumadin Priority: Secondary Status: Chronic (4) Acute kidney injury superimposed on chronic kidney disease Priority: Secondary Status: Acute (5) Type 2 diabetes mellitus Status: Chronic (6) Hemarthrosis involving knee joint Priority: Secondary Status: Acute (7) Rib fractures Priority: Secondary Status: Suspected - Respiratory Orders Smoking Cessation: Smoking cessation has been advised. For more information, call the [place] Tobacco Quit Line at 5-561-QRGO-NOW. - Diet/Nutrition Diet/Nutrition Orders: No Concentrated Sweets - Activity Activity Orders: Ambulate - Services Needed Following services are medically necessary services: Nursing, Physical Therapy - Transfer Medications Home Medications: Acetaminophen [Tylenol] 500 mg PO Q6H PRN 02/26/17 [History] Allopurinol [Zyloprim 100 MG] 100 mg PO BID 02/26/17 [History] Amiodarone [Cordarone] 400 mg PO QAM 02/26/17 [History] Biotin 1 mg PO DAILY 02/26/17 [History] Calcitriol [Rocaltrol] 0.25 mcg PO DAILY 02/26/17 [History] Cholecalciferol (D-3) [Vitamin D] 3,000 unit PO DAILY 02/26/17 [History] Cyanocobalamin (Vitamin B-12) [Vitamin B-12] 250 mcg PO DAILY 02/26/17 [History] Enalapril Maleate [Vasotec] 20 mg PO BID 02/26/17 [History] Furosemide [Lasix] 40 mg PO Q48H 02/26/17 [History] Metoprolol [Lopressor] 25 mg PO BID 02/26/17 [History] Omeprazole [PriLOSEC] 20 mg PO BID 02/26/17 [History] Oxycodone HCl/Acetaminophen [Percocet 5-325 mg Tablet] 1 each PO BID PRN [History] Potassium Chloride [Klor-Con 10] 10 meq PO DAILY 02/26/17 [History] Warfarin [Coumadin] 1 mg PO Q48H 02/26/17 [History] Warfarin [Coumadin] 2 mg PO Q48H 02/26/17 [History] Docusate [Colace] 100 mg PO BID PRN #30 02/28/17 [Rx] HYDROcodone/Acet 7.5/325 mg [[place] 7.5-325 mg] 1 tab PO Q4HR PRN #25 tab [Rx] Allergies/Adverse Reactions: Allergies Sulfa (Sulfonamide Antibiotics) Allergy (Verified 02/26/17 14:01) Hives Certification: Further, I certify that my clinical findings support that this patient is homebound (i.e. absences from home require considerable and taxing effort and are for medical reasons or jew services or infrequently or short duration when for other reasons) because: Homebound Reason: Patient requires assistance of a person or device to safely leave home Attestation: My signature below is to certify that this patient is under my care and that I, or nurse practitioner, or a physician's topographical field assistant working with me, has a face-to -face encounter with this patient.
[2017-03-13] MEDS: MOM Conc 10 ML UD.LIQ PO SCH (19:57)
[2017-03-14 05:30] LABS: INR 2.6; Prothrombin Time 28.1 Seconds (9.4-12.1)
[2017-03-14] MEDS: *HR* HYDROcodone/Acet 7.5/325 mg TABLET PO PRN (06:28)
[2017-03-14 07:10] VITALS: BP 152/84
[2017-03-14] MEDS: BIOTIN 1 MG PO SCH (08:37)
[2017-03-14] MEDS: *HR* Amiodarone 200 MG TABLET PO SCH (08:37)
[2017-03-14] MEDS: Cholecalciferol (D-3) 1,000 UNIT TABLET PO SCH (08:37)
[2017-03-14] MEDS: Cyanocobalamin (B-12) 1,000 MCG TABLET PO SCH (08:37)
[2017-03-14] MEDS: Furosemide 40 MG TABLET PO SCH (08:38)
== END 2017-03-14 11:56 | disposition home health service (06) | DRG 560 ==
LOC: INPGRE 22:00
PROVIDERS: ADMIT Internal Medicine; ATTEND Internal Medicine

== ENCOUNTER 2017-05-09 20:49 | Inpatient (IN) ==
[2017-05-09] MEDS: *HR* HYDROcodone/Acet 5/325 mg TABLET PO PRN (22:32)
[2017-05-10 05:09] LABS: Basophils % 0.3 %; Eosinophils # 0.2 K/mcL (0.0-0.6); Hematocrit 25.8 % (35.3-44.9); Hemoglobin 8.6 g/dL (11.5-15.4); Immature Granulocytes % 0.5 % (0-4); Lymphocytes # 0.9 K/mcL (0.6-4.6); Lymphocytes % 12.5 %; Mean Corpuscular HGB Conc 33.3 g/dL (31.6-35.5); Mean Corpuscular Hemoglobin 30.3 pg (28.0-33.3); Mean Corpuscular Volume 90.8 fL (83.0-100.0); Monocytes # 0.4 K/mcL (0.0-1.3); Monocytes % 5.5 %; Neutrophils # 5.7 K/mcL (1.6-8.9); Platelet Count 136 K/mcL (140-400); Red Blood Count 2.84 M/mcL (3.82-4.97); Red Cell Distribution Width 15.5 % (11.5-14.5); Segmented Neutrophils % 78.2 %
[2017-05-10 05:14] LABS: INR 1.5
[2017-05-10 05:17] LABS: Activated Partial Thrombo Time 30.4 Seconds (26.0-36.0)
[2017-05-10 05:26] LABS: BUN/Creatinine Ratio 29 (6-26); Blood Urea Nitrogen 28 mg/dL (7-20); Calcium 8.3 mg/dL (8.6-10.8); Carbon Dioxide 24 mEq/L (19-29); Chloride 110 mEq/L (98-109); Glucose 94 mg/dL (70-99); Osmolality,Calculated 293 (280-300); Potassium 4.9 mEq/L (3.5-4.5); Sodium 139 mEq/L (136-145); eGFR For African Americans > 60 (> 60); eGFR For Non-African Americans 57 (> 60)
[2017-05-10] MEDS: *HR* HYDROcodone/Acet 5/325 mg TABLET PO PRN ×4 (05:42→21:51)
[2017-05-10] MEDS: Cyanocobalamin (B-12) 1,000 MCG TABLET PO SCH (09:30)
[2017-05-10] MEDS: Furosemide 40 MG TABLET PO SCH ×2 (09:31→16:24)
[2017-05-10] MEDS: cephALEXin 500 MG CAPSULE PO SCH ×2 (09:31→21:50)
[2017-05-10] MEDS: Lisinopril 20 MG TABLET PO SCH ×2 (09:31→21:51)
[2017-05-10] MEDS: *HR* Amiodarone 200 MG TABLET PO SCH (09:31)
[2017-05-10] MEDS: Cholecalciferol (D-3) 1,000 UNIT TABLET PO SCH (09:31)
[2017-05-10] MEDS: BIOTIN 1 MG PO SCH (09:31)
--- NOTE | 2017-05-10 10:51 | Internal Med History&Physical ---
Date of Encounter: 05/10/17 Time of Encounter: 10:51 Assessment and Plan (1) Humeral surgical neck fracture Current visit: No Status: Acute Patient fell lost her balance landed on her side and fractured the femoral neck Qualifiers: Encounter type: subsequent encounter Fracture type: closed Fracture morphology: unspecified fracture morphology Fracture alignment: nondisplaced Laterality: right Fracture healing: with routine healing Qualified Code(s) : S42.214D - Unspecified nondisplaced fracture of surgical neck of right humerus , subsequent encounter for fracture with routine healing (2) Inability to ambulate due to knee Current visit: No Status: Acute She still having trouble with her knee. (3) Intertrochanteric fracture of left hip Current visit: No Status: Acute She had a hip nailing due to the intratrochanteric fracture of her left hip Qualifiers: Encounter type: subsequent encounter Fracture type: closed Fracture alignment: displaced Fracture healing: with routine healing Qualified Code(s ): S72.142D - Displaced intertrochanteric fracture of left femur, subsequent encounter for closed fracture with routine healing Internal Medicine - H&P: HPI Chief complaint: Patient had intratrochanteric hip fracture and was taken to [facility] Admitted From: Hospital to Hospital Transfer Plans for Post Hospital Care: Home History of present illness: Ms. Wood is a 71 year old female Past Med Surg Social Fam HX - Past Medical History Medical history: atrial fibrillation, CHF, diabetes, GERD, hyperlipidemia, hypertension, myocardial infarction, renal disease Psychiatric history: no psych history - Past Surgical History Surgical History: cholecystectomy, hip replacement, pacemaker/AICD, other - Social History Smoking Status: Never smoker Smokeless Tobacco Status: No Alcohol use: none Drug use: none - Family History Mother Living Status: Hx Family Endocrine Disorder: Yes (diabetes) Father Living Status: Hx Family Cardiac Disorders: Yes Internal Medicine - H&P: Meds Allopurinol [Zyloprim 100 MG] 100 mg PO BID 02/26/17 [History] Amiodarone [Cordarone] 400 mg PO QAM 02/26/17 [History] Biotin 1 mg PO DAILY 02/26/17 [History] Calcitriol [Rocaltrol] 0.25 mcg PO DAILY 02/26/17 [History] Cholecalciferol (D-3) [Vitamin D] 1,000 unit PO DAILY 02/26/17 [History] Cyanocobalamin (Vitamin B-12) [Vitamin B-12] 250 mcg PO DAILY 02/26/17 [History] Enalapril Maleate [Vasotec] 20 mg PO BID 02/26/17 [History] Metoprolol [Lopressor] 25 mg PO BID 02/26/17 [History] Omeprazole [PriLOSEC] 20 mg PO BID 02/26/17 [History] Potassium Chloride [Klor-Con 10] 10 meq PO DAILY 02/26/17 [History] Warfarin [Coumadin] 2 mg PO VERDUGO 02/26/17 [History] cephALEXin [Keflex] 500 mg PO BID 05/05/17 [History] Furosemide [Lasix] 40 mg PO BID #30 05/09/17 [Rx] HYDROcodone/Acet 5/325 mg [[place] 5-325 mg] 1 tab PO Q4HR PRN #15 tablet [Rx] Warfarin [Coumadin] 1 mg PO DAILY 05/09/17 [History] Warfarin [Coumadin] 2 mg PO WE 05/09/17 [History] 3 Allergy/AdvReac Type Severity Reaction Status Date / Time Sulfa (Sulfonamide Allergy See Verified 05/05/17 11:42 Antibiotics) Comments All Systems PM: A 10-system review of systems was performed and is negative for pertinent findings except as documented above in the HPI. - Constitutional Vitals: Temp Pulse Resp BP Pulse Ox 98.1 F 60 16 141/65 96 05/10/17 09:40 05/10/17 09:40 05/10/17 09:40 05/10/17 09:40 05/10/17 09:40 - Head Head exam: Present: atraumatic, normal inspection, normocephalic - Neck Neck exam general surgery: Present: supple, trachea midline. Absent: lymphadenopathy - Cardiovascular Cardiovascular exam: Present: RRR, +S1, +S2. Absent: diastolic murmur, gallop, rubs, systolic murmur - GI/Abdominal GI/Abdominal exam: Present: normal bowel sounds, soft, no peritoneal signs. Absent: distended, tenderness Internal Med - H&P Results - Labs CBC & Chem 7: 05/10/17 04:45 05/10/17 04:45 Labs: Short CBC 05/10/17 Range/Units 04:45 WBC 7.3 (4.3-11.1) K/mcL Hgb 8.6 L (11.5-15.4) g/dL Hct 25.8 L (35.3-44.9) % Plt Count 136 L (140-400) K/mcL Neutrophils # 5.7 (1.6-8.9) K/mcL BMP 05/10/17 04:45 Sodium 139 Potassium 4.9 H Chloride 110 H Carbon Dioxide 24 BUN 28 H Creatinine 0.96 Glucose 94 Calcium 8.3 L Have to watch the lab especially the hemoglobin. States 6
[2017-05-10] MEDS ORDERED: *HR* Warfarin 1 MG TABLET PO SCH (18:00)
[2017-05-10] MEDS ORDERED: *HR* Warfarin 2 MG TABLET PO ONE (18:00)
[2017-05-10] MEDS ORDERED: Warfarin perPT PO PRN (18:00)
[2017-05-11 06:02] LABS: INR 1.5; Prothrombin Time 15.8 Seconds (9.4-12.1)
[2017-05-11] MEDS: *HR* HYDROcodone/Acet 5/325 mg TABLET PO PRN ×4 (06:20→21:23)
[2017-05-11] MEDS: Cyanocobalamin (B-12) 1,000 MCG TABLET PO SCH (09:03)
[2017-05-11] MEDS: Cholecalciferol (D-3) 1,000 UNIT TABLET PO SCH (09:03)
[2017-05-11] MEDS: Furosemide 40 MG TABLET PO SCH ×2 (09:04→17:05)
[2017-05-11] MEDS: Lisinopril 20 MG TABLET PO SCH ×2 (09:05→21:24)
[2017-05-11] MEDS: *HR* Amiodarone 200 MG TABLET PO SCH (09:05)
[2017-05-11] MEDS: BIOTIN 1 MG PO SCH (09:09)
[2017-05-11] MEDS: cephALEXin 500 MG CAPSULE PO SCH ×2 (09:09→21:23)
--- NOTE | 2017-05-11 12:28 | Internal Med Progress Note ---
Date of Encounter: 05/11/17 Time of Encounter: 12:00 - Assessment and plan (1) Subtherapeutic international normalized ratio (INR) Current Visit: Yes Status: Acute Assessment and plan: - Warfarin dosing per pharmacy. - Daily PT/INR. (2) Intertrochanteric fracture of left hip Current Visit: No Status: Acute Assessment and plan: S/P nailing, continue to work with therapists. Qualifiers: Encounter type: subsequent encounter Fracture type: closed Fracture alignment: displaced Fracture healing: with routine healing Qualified Code(s ): S72.142D - Displaced intertrochanteric fracture of left femur, subsequent encounter for closed fracture with routine healing - Time Spent With Patient 25 - 35 minutes - Subjective Interval history: - Feeling weak, otherwise okay. - Has been working with therapists, but tires easily. - Constitutional Vitals: Temp Pulse Resp BP Pulse Ox 97.7 F 60 14 148/67 94 05/11/17 07:04 05/11/17 07:04 05/11/17 07:04 05/11/17 07:04 05/11/17 07:04 Exam: Gen: A&Ox3, NAD. HEENT: NCAT. Neck: No palpable lymphadenopathy or thyromegaly. CV: RRR, S1S2. 1/6, systolic murmur best appreciated in the tricuspid region. Capillary refill < 2 seconds. Pulm: CTAB. Abd: (+)BS. NDNT. Neuro: Global weakness, otherwise non-focal. Skin: No rash. Ext: No pitting edema. Internal Medicine: Result - Labs CBC & Chem 7: 05/10/17 04:45 05/10/17 04:45 - ABG Interpretation ABG results: PT/INR, D-dimer PT 15.8 Seconds (9.4-12.1) H 05/11/17 05:00 Consult Discharge Plan - Plan Referrals: Gia Bsihop MD [Primary Care Provider] - (Follow up with Yadira Raymond 05/22/17 at 11:30 Follow up with Derick Hernandez 06/19/17 at 11:00 Follow up with PCP Gia Anthony at D/C)
[2017-05-11] MEDS: *HR* Enoxaparin 80 MG/0.8 ML SYRINGE SQ SCH (17:06)
[2017-05-11] MEDS ORDERED: *HR* Warfarin 2 MG TABLET PO ONE (18:00)
[2017-05-12] MEDS: *HR* HYDROcodone/Acet 5/325 mg TABLET PO PRN ×4 (03:03→20:24)
[2017-05-12 05:23] LABS: INR 1.7; Prothrombin Time 18.6 Seconds (9.4-12.1)
[2017-05-12] MEDS: *HR* Enoxaparin 80 MG/0.8 ML SYRINGE SQ SCH ×2 (07:59→18:36)
[2017-05-12] MEDS: Furosemide 40 MG TABLET PO SCH ×2 (08:44→18:36)
[2017-05-12] MEDS: Cyanocobalamin (B-12) 1,000 MCG TABLET PO SCH (08:44)
[2017-05-12] MEDS: Lisinopril 20 MG TABLET PO SCH ×2 (08:44→20:24)
[2017-05-12] MEDS: Cholecalciferol (D-3) 1,000 UNIT TABLET PO SCH (08:44)
[2017-05-12] MEDS: *HR* Amiodarone 200 MG TABLET PO SCH (08:44)
[2017-05-12] MEDS: cephALEXin 500 MG CAPSULE PO SCH ×2 (08:45→20:24)
[2017-05-12] MEDS: BIOTIN 1 MG PO SCH (08:45)
--- NOTE | 2017-05-12 11:53 | Internal Med Progress Note ---
Date of Encounter: 05/12/17 Time of Encounter: 11:40 - Assessment and plan (1) Subtherapeutic international normalized ratio (INR) Current Visit: Yes Status: Acute Assessment and plan: - Warfarin dosing per pharmacy. - Continue Lovenox bridging. - Daily PT/INR. (2) Intertrochanteric fracture of left hip Current Visit: No Status: Acute Assessment and plan: S/P nailing, continue to work with therapists. Qualifiers: Encounter type: subsequent encounter Fracture type: closed Fracture alignment: displaced Fracture healing: with routine healing Qualified Code(s ): S72.142D - Displaced intertrochanteric fracture of left femur, subsequent encounter for closed fracture with routine healing - Time Spent With Patient less than 15 minutes - Subjective Interval history: - Feeling weak, otherwise okay, states energy is perhaps a bit better than yesterday. - Has been working with therapists. - Constitutional Vitals: Temp Pulse Resp BP Pulse Ox 98.4 F 66 14 144/59 91 05/12/17 07:00 05/12/17 07:00 05/12/17 07:00 05/12/17 07:00 05/12/17 07:00 Exam: Gen: A&Ox3, NAD. HEENT: NCAT. Neck: No palpable lymphadenopathy or thyromegaly. CV: RRR, S1S2. 1/6, systolic murmur best appreciated in the tricuspid region. Capillary refill < 2 seconds. Pulm: CTAB. Abd: (+)BS. NDNT. Neuro: Global weakness, otherwise non-focal. Skin: No rash. Ext: No pitting edema. Internal Medicine: Result - Labs CBC & Chem 7: 05/10/17 04:45 05/10/17 04:45 - ABG Interpretation ABG results: PT/INR, D-dimer PT 18.6 Seconds (9.4-12.1) H 05/12/17 05:00 Consult Discharge Plan - Plan Referrals: Gia Bishop MD [Primary Care Provider] - (Follow up with Yadira Raymond 05/22/17 at 11:30 Follow up with Derick Hernandez 06/19/17 at 11:00 Follow up with PCP Gia Anthony at D/C)
[2017-05-12] MEDS ORDERED: *HR* Warfarin 2 MG TABLET PO SCH (18:00)
[2017-05-12] MEDS ORDERED: *HR* Warfarin 2 MG TABLET PO ONE (18:00)
[2017-05-13 05:58] LABS: Basophils % 0.7 %; Eosinophils # 0.3 K/mcL (0.0-0.6); Eosinophils % 4.9 %; Hematocrit 25.7 % (35.3-44.9); Hemoglobin 8.6 g/dL (11.5-15.4); Immature Granulocytes % 1.4 % (0-4); Lymphocytes % 17.3 %; Mean Corpuscular HGB Conc 33.5 g/dL (31.6-35.5); Mean Corpuscular Hemoglobin 30.3 pg (28.0-33.3); Mean Corpuscular Volume 90.5 fL (83.0-100.0); Mean Platelet Volume 11.5 fL (9.4-12.4); Monocytes # 0.4 K/mcL (0.0-1.3); Monocytes % 6.5 %; Neutrophils # 3.9 K/mcL (1.6-8.9); Platelet Count 193 K/mcL (140-400); Red Blood Count 2.84 M/mcL (3.82-4.97); Red Cell Distribution Width 15.9 % (11.5-14.5); Segmented Neutrophils % 69.2 %
[2017-05-13 06:09] LABS: INR 1.8; Prothrombin Time 19.9 Seconds (9.4-12.1)
[2017-05-13 06:15] LABS: BUN/Creatinine Ratio 28 (6-26); Blood Urea Nitrogen 30 mg/dL (7-20); Calcium 8.1 mg/dL (8.6-10.8); Carbon Dioxide 25 mEq/L (19-29); Chloride 105 mEq/L (98-109); Glucose 94 mg/dL (70-99); Osmolality,Calculated 292 (280-300); Potassium 3.4 mEq/L (3.5-4.5); Sodium 138 mEq/L (136-145); eGFR For African Americans > 60 (> 60); eGFR For Non-African Americans 50 (> 60)
[2017-05-13] MEDS: *HR* Enoxaparin 80 MG/0.8 ML SYRINGE SQ SCH ×2 (06:24→18:14)
[2017-05-13] MEDS: *HR* HYDROcodone/Acet 5/325 mg TABLET PO PRN ×4 (06:27→20:48)
[2017-05-13] MEDS: Cyanocobalamin (B-12) 1,000 MCG TABLET PO SCH (08:13)
[2017-05-13] MEDS: *HR* Amiodarone 200 MG TABLET PO SCH (08:14)
[2017-05-13] MEDS: Cholecalciferol (D-3) 1,000 UNIT TABLET PO SCH (08:14)
[2017-05-13] MEDS: cephALEXin 500 MG CAPSULE PO SCH ×2 (08:14→18:10)
[2017-05-13] MEDS: Furosemide 40 MG TABLET PO SCH ×2 (08:14→18:15)
[2017-05-13] MEDS: Lisinopril 20 MG TABLET PO SCH ×2 (08:14→18:11)
[2017-05-13] MEDS: BIOTIN 1 MG PO SCH (08:15)
--- NOTE | 2017-05-13 13:34 | Internal Med Progress Note ---
Date of Encounter: 05/13/17 Time of Encounter: 13:32 - Assessment and plan (1) Humeral surgical neck fracture Current Visit: No Status: Acute Qualifiers: Encounter type: subsequent encounter Fracture type: closed Fracture morphology: unspecified fracture morphology Fracture alignment: nondisplaced Laterality: right Fracture healing: with routine healing Qualified Code(s) : S42.214D - Unspecified nondisplaced fracture of surgical neck of right humerus , subsequent encounter for fracture with routine healing (2) Inability to ambulate due to knee Current Visit: No Status: Acute (3) Intertrochanteric fracture of left hip Current Visit: No Status: Acute Qualifiers: Encounter type: subsequent encounter Fracture type: closed Fracture alignment: displaced Fracture healing: with routine healing Qualified Code(s ): S72.142D - Displaced intertrochanteric fracture of left femur, subsequent encounter for closed fracture with routine healing - Subjective Interval history: Patient's moving quite slowly and not ambulating at all this point. - Constitutional Vitals: Temp Pulse Resp BP Pulse Ox 98.3 F 61 14 157/70 93 05/13/17 07:00 05/13/17 07:00 05/13/17 07:00 05/13/17 07:00 05/13/17 07:00 - Head Head exam: Present: atraumatic, normal inspection, normocephalic - Neck Neck exam general surgery: Present: supple, trachea midline. Absent: lymphadenopathy - Respiratory Respiratory exam: Present: CTAB. Absent: accessory muscle use, rales, rhonchi, wheezes - Cardiovascular Cardiovascular exam: Present: RRR, +S1, +S2. Absent: diastolic murmur, gallop, rubs, systolic murmur Internal Medicine: Result - Labs CBC & Chem 7: 05/13/17 05:45 05/13/17 05:45 Labs: Short CBC 05/13/17 Range/Units 05:45 WBC 5.7 (4.3-11.1) K/mcL Hgb 8.6 L (11.5-15.4) g/dL Hct 25.7 L (35.3-44.9) % Plt Count 193 (140-400) K/mcL Neutrophils # 3.9 (1.6-8.9) K/mcL BMP 05/13/17 05:45 Sodium 138 Potassium 3.4 L Chloride 105 Carbon Dioxide 25 BUN 30 H Creatinine 1.09 Glucose 94 Calcium 8.1 L Follow-up potassium - ABG Interpretation ABG results: PT/INR, D-dimer PT 19.9 Seconds (9.4-12.1) H 05/13/17 05:45 Consult Discharge Plan - Plan Referrals: Gia Bishop MD [Primary Care Provider] - (Follow up with Yadira Raymond 05/22/17 at 11:30 Follow up with Derick Hernandez 06/19/17 at 11:00 Follow up with PCP Gia Anthony at D/C)
[2017-05-13] MEDS: Ondansetron ODT 4 MG TAB.RAPDIS SL PRN (14:40)
[2017-05-13] MEDS ORDERED: *HR* Warfarin 2 MG TABLET PO ONE (18:00)
[2017-05-14] MEDS: *HR* Enoxaparin 80 MG/0.8 ML SYRINGE SQ SCH (05:31)
[2017-05-14] MEDS: *HR* HYDROcodone/Acet 5/325 mg TABLET PO PRN ×3 (05:31→20:10)
[2017-05-14 06:08] LABS: INR 2.2; Prothrombin Time 23.8 Seconds (9.4-12.1)
[2017-05-14 06:10] LABS: Calcium 8.3 mg/dL (8.6-10.8); Potassium 3.7 mEq/L (3.5-4.5)
[2017-05-14] MEDS: cephALEXin 500 MG CAPSULE PO SCH ×2 (08:46→20:09)
[2017-05-14] MEDS: Lisinopril 20 MG TABLET PO SCH ×2 (08:46→20:09)
[2017-05-14] MEDS: Cyanocobalamin (B-12) 1,000 MCG TABLET PO SCH (08:46)
[2017-05-14] MEDS: Ondansetron ODT 4 MG TAB.RAPDIS SL PRN ×2 (08:47→20:10)
[2017-05-14] MEDS: Furosemide 40 MG TABLET PO SCH ×2 (08:47→17:22)
[2017-05-14] MEDS: *HR* Amiodarone 200 MG TABLET PO SCH (08:47)
[2017-05-14] MEDS: Cholecalciferol (D-3) 1,000 UNIT TABLET PO SCH (08:47)
[2017-05-14] MEDS: BIOTIN 1 MG PO SCH (08:47)
--- NOTE | 2017-05-14 14:36 | Internal Med Progress Note ---
Date of Encounter: 05/14/17 Time of Encounter: 14:34 - Assessment and plan (1) Humeral surgical neck fracture Current Visit: No Status: Acute Assessment and plan: Patient had a hip fracture secondary to fall and is here for rehabilitation. Qualifiers: Encounter type: subsequent encounter Fracture type: closed Fracture morphology: unspecified fracture morphology Fracture alignment: nondisplaced Laterality: right Fracture healing: with routine healing Qualified Code(s) : S42.214D - Unspecified nondisplaced fracture of surgical neck of right humerus , subsequent encounter for fracture with routine healing (2) Inability to ambulate due to knee Current Visit: No Status: Acute (3) Intertrochanteric fracture of left hip Current Visit: No Status: Acute Assessment and plan: Complaints sometimes knee pain. Qualifiers: Encounter type: subsequent encounter Fracture type: closed Fracture alignment: displaced Fracture healing: with routine healing Qualified Code(s ): S72.142D - Displaced intertrochanteric fracture of left femur, subsequent encounter for closed fracture with routine healing - Time Spent With Patient less than 15 minutes - Subjective Interval history: Patient has a lot of minor aches and pains and complaints. But overall is cooperating she is going to the gym and working with the therapist. She is up and dressed - Constitutional Vitals: Temp Pulse Resp BP Pulse Ox 98.4 F 60 16 123/60 92 05/14/17 07:56 05/14/17 07:56 05/14/17 07:56 05/14/17 07:56 05/14/17 07:56 - Head Head exam: Present: atraumatic, normal inspection, normocephalic - Neck Neck exam general surgery: Present: supple, trachea midline. Absent: lymphadenopathy - Respiratory Respiratory exam: Present: CTAB. Absent: accessory muscle use, rales, rhonchi, wheezes - Cardiovascular Cardiovascular exam: Present: RRR, +S1, +S2. Absent: diastolic murmur, gallop, rubs, systolic murmur Internal Medicine: Result - Labs CBC & Chem 7: 05/13/17 05:45 05/14/17 05:45 Labs: BMP 05/14/17 05:45 Sodium 139 Potassium 3.7 Chloride 106 Carbon Dioxide 23 BUN 34 H Creatinine 1.23 H Glucose 95 Calcium 8.3 L - ABG Interpretation ABG results: PT/INR, D-dimer PT 23.8 Seconds (9.4-12.1) H 05/14/17 05:45 Consult Discharge Plan - Plan Referrals: Gia Bishop MD [Primary Care Provider] - (Follow up with Yadira Raymond 05/22/17 at 11:30 Follow up with Derick Hernandez 06/19/17 at 11:00 Follow up with PCP Gia Anthony at D/C)
[2017-05-14] MEDS ORDERED: *HR* Warfarin 1 MG TABLET PO ONE (18:00)
[2017-05-15] MEDS: *HR* HYDROcodone/Acet 5/325 mg TABLET PO PRN ×3 (03:58→17:12)
[2017-05-15] MEDS: Ondansetron ODT 4 MG TAB.RAPDIS SL PRN (03:58)
[2017-05-15 05:48] LABS: INR 2.1
[2017-05-15] MEDS: BIOTIN 1 MG PO SCH (07:48)
[2017-05-15] MEDS: Cyanocobalamin (B-12) 1,000 MCG TABLET PO SCH (08:01)
[2017-05-15] MEDS: *HR* Amiodarone 200 MG TABLET PO SCH (08:01)
[2017-05-15] MEDS: cephALEXin 500 MG CAPSULE PO SCH ×2 (08:01→20:38)
[2017-05-15] MEDS: Cholecalciferol (D-3) 1,000 UNIT TABLET PO SCH (08:01)
[2017-05-15] MEDS: Lisinopril 20 MG TABLET PO SCH ×2 (08:01→20:38)
[2017-05-15] MEDS: Furosemide 40 MG TABLET PO SCH ×2 (08:01→17:09)
--- NOTE | 2017-05-15 12:17 | Physical Med Progress Note ---
Date of Encounter: 05/15/17 Time of Encounter: 12:14 Physical Medicine-PN: Subj Interval history: PMR PCC Note Patient admitted secondary to medical deconditioning. She is min A for lower body dressing. She was able to go from supine to sit independently. She is using a wheelchair for mobility. She is Ирина for stand pivot. Unable to tolerate standing for longer than 4 minutes. Plan to continue intensive PT/OT/ TR. Plan for discharge 05/24/17 to home. - Constitutional Vitals: Vital Signs Temp Pulse Resp BP Pulse Ox 05/15/17 07:00 97.9 F 60 16 120/69 95 05/14/17 19:22 97.9 F 60 18 122/56 93 05/14/17 13:28 106/66 Intake and Output 05/14/17 05/15/17 05/15/17 23:59 07:59 15:59 Intake Total 220 / 220 240 / 240 Output Total 250 / 250 Balance -30 / -30 240 / 240 Intake: Oral 220 / 220 240 / 240 Output: Urine 250 / 250 Other: Meal Dinner Breakfast Percent of Meal Consumed 80% 100% Stool Size Large Moderate Stool Consistency soft soft Stool Characteristics Normal for Patient Stool Color Brown Brown # Voids 1 1 # Urine Diapers 1 # Bowel Movements 1 1 Physical Medicine-PN: Obj Data - Labs CBC & Chem 7: 05/13/17 05:45 05/14/17 05:45 Labs: Laboratory Results - last 24 hr 05/15/17 05:35 PT 23.0 H INR 2.1 - ABG Interpretation ABG results: PT/INR, D-dimer PT 23.0 Seconds (9.4-12.1) H 05/15/17 05:35 Consult Discharge Plan - Plan Referrals: Gia Bishop MD [Primary Care Provider] - (Follow up with Yadira Raymond 05/22/17 at 11:30 Follow up with Derick Hernandez 06/19/17 at 11:00 Follow up with PCP Gia Anthony at D/C)
--- NOTE | 2017-05-15 14:22 | Psychological Evaluation ---
Date of Encounter: 05/15/17 Time of Encounter: 13:15 History of Present Illness History of present illness: Ms. Wood is a 71 year old female admitted after a fall that resulted in fracture of the femoral neck. PMH includes atrrial fibrillation, CHF, diabetes , GERD, hyperlipidemia, hypertension, myocardial infarction, renal disease Past Medical History - Psychiatric History Psychiatric history: Reports: no psych history Home Medications and Allergies Allopurinol [Zyloprim 100 MG] 100 mg PO BID 02/26/17 [History] Amiodarone [Cordarone] 400 mg PO QAM 02/26/17 [History] Biotin 1 mg PO DAILY 02/26/17 [History] Calcitriol [Rocaltrol] 0.25 mcg PO DAILY 02/26/17 [History] Cholecalciferol (D-3) [Vitamin D] 1,000 unit PO DAILY 02/26/17 [History] Cyanocobalamin (Vitamin B-12) [Vitamin B-12] 250 mcg PO DAILY 02/26/17 [History] Enalapril Maleate [Vasotec] 20 mg PO BID 02/26/17 [History] Metoprolol [Lopressor] 25 mg PO BID 02/26/17 [History] Omeprazole [PriLOSEC] 20 mg PO BID 02/26/17 [History] Potassium Chloride [Klor-Con 10] 10 meq PO DAILY 02/26/17 [History] Warfarin [Coumadin] 2 mg PO VERDUGO 02/26/17 [History] cephALEXin [Keflex] 500 mg PO BID 05/05/17 [History] Furosemide [Lasix] 40 mg PO BID #30 05/09/17 [Rx] HYDROcodone/Acet 5/325 mg [[place] 5-325 mg] 1 tab PO Q4HR PRN #15 tablet [Rx] Warfarin [Coumadin] 1 mg PO DAILY 05/09/17 [History] Warfarin [Coumadin] 2 mg PO WE 05/09/17 [History] 3 Allergy/AdvReac Type Severity Reaction Status Date / Time Sulfa (Sulfonamide Allergy See Verified 05/05/17 11:42 Antibiotics) Comments
--- NOTE | 2017-05-15 14:24 | Psychological Evaluation ---
Date of Encounter: 05/15/17 Time of Encounter: 13:15 History of Present Illness History of present illness: Ms. Wood is a 71 year old female Home Medications and Allergies Allopurinol [Zyloprim 100 MG] 100 mg PO BID 02/26/17 [History] Amiodarone [Cordarone] 400 mg PO QAM 02/26/17 [History] Biotin 1 mg PO DAILY 02/26/17 [History] Calcitriol [Rocaltrol] 0.25 mcg PO DAILY 02/26/17 [History] Cholecalciferol (D-3) [Vitamin D] 1,000 unit PO DAILY 02/26/17 [History] Cyanocobalamin (Vitamin B-12) [Vitamin B-12] 250 mcg PO DAILY 02/26/17 [History] Enalapril Maleate [Vasotec] 20 mg PO BID 02/26/17 [History] Metoprolol [Lopressor] 25 mg PO BID 02/26/17 [History] Omeprazole [PriLOSEC] 20 mg PO BID 02/26/17 [History] Potassium Chloride [Klor-Con 10] 10 meq PO DAILY 02/26/17 [History] Warfarin [Coumadin] 2 mg PO VERDUGO 02/26/17 [History] cephALEXin [Keflex] 500 mg PO BID 05/05/17 [History] Furosemide [Lasix] 40 mg PO BID #30 05/09/17 [Rx] HYDROcodone/Acet 5/325 mg [[place] 5-325 mg] 1 tab PO Q4HR PRN #15 tablet [Rx] Warfarin [Coumadin] 1 mg PO DAILY 05/09/17 [History] Warfarin [Coumadin] 2 mg PO WE 05/09/17 [History] 3 Allergy/AdvReac Type Severity Reaction Status Date / Time Sulfa (Sulfonamide Allergy See Verified 05/05/17 11:42 Antibiotics) Comments Social History - Tobacco Use Smoking Status: Unknown if ever smoked - Alcohol Use Alcohol Use: unknown - Drug Use Drug Use: none
--- NOTE | 2017-05-15 14:26 | Psychological Evaluation ---
Date of Encounter: 05/15/17 Time of Encounter: 13:15 History of Present Illness History of present illness: Ms. Wood is a 71 year old female Home Medications and Allergies Allopurinol [Zyloprim 100 MG] 100 mg PO BID 02/26/17 [History] Amiodarone [Cordarone] 400 mg PO QAM 02/26/17 [History] Biotin 1 mg PO DAILY 02/26/17 [History] Calcitriol [Rocaltrol] 0.25 mcg PO DAILY 02/26/17 [History] Cholecalciferol (D-3) [Vitamin D] 1,000 unit PO DAILY 02/26/17 [History] Cyanocobalamin (Vitamin B-12) [Vitamin B-12] 250 mcg PO DAILY 02/26/17 [History] Enalapril Maleate [Vasotec] 20 mg PO BID 02/26/17 [History] Metoprolol [Lopressor] 25 mg PO BID 02/26/17 [History] Omeprazole [PriLOSEC] 20 mg PO BID 02/26/17 [History] Potassium Chloride [Klor-Con 10] 10 meq PO DAILY 02/26/17 [History] Warfarin [Coumadin] 2 mg PO VERDUGO 02/26/17 [History] cephALEXin [Keflex] 500 mg PO BID 05/05/17 [History] Furosemide [Lasix] 40 mg PO BID #30 05/09/17 [Rx] HYDROcodone/Acet 5/325 mg [[place] 5-325 mg] 1 tab PO Q4HR PRN #15 tablet [Rx] Warfarin [Coumadin] 1 mg PO DAILY 05/09/17 [History] Warfarin [Coumadin] 2 mg PO WE 05/09/17 [History] 3 Allergy/AdvReac Type Severity Reaction Status Date / Time Sulfa (Sulfonamide Allergy See Verified 05/05/17 11:42 Antibiotics) Comments Cognitive/Emotional Assessment - Cognitive Ability Abstract Thinking Ability: No Deficits Noted Attention Span Ability: Capable of Focused Attention Language Function Ability: No Deficits Noted Verbal Communication Ability: Conversational Style Problem Solving Ability: Able To Solve Simple Problems Safety Awareness: Understands Safety Issues Level of Alertness: Alert Memory Description: Recent Intact, Episodic Intact Orientation: Person, Place, Time, Name, Age Visual Spatial Deficit: No Deficits Noted Ability to Follow Directions: Good Speech Pattern: Normal rate Thought Process: Logical - Emotional Status Mood Description: Anxious Affect Description: Anxious Coping Ability: Unsure about ability to cope
--- NOTE | 2017-05-15 14:28 | Psychological Evaluation ---
Date of Encounter: 05/15/17 Time of Encounter: 14:38 History of Present Illness History of present illness: Ms. Wood is a 71 year old female who was admitted after a fall. The fall resulted in fracture to the femoral neck. Home Medications and Allergies Allopurinol [Zyloprim 100 MG] 100 mg PO BID 02/26/17 [History] Amiodarone [Cordarone] 400 mg PO QAM 02/26/17 [History] Biotin 1 mg PO DAILY 02/26/17 [History] Calcitriol [Rocaltrol] 0.25 mcg PO DAILY 02/26/17 [History] Cholecalciferol (D-3) [Vitamin D] 1,000 unit PO DAILY 02/26/17 [History] Cyanocobalamin (Vitamin B-12) [Vitamin B-12] 250 mcg PO DAILY 02/26/17 [History] Enalapril Maleate [Vasotec] 20 mg PO BID 02/26/17 [History] Metoprolol [Lopressor] 25 mg PO BID 02/26/17 [History] Omeprazole [PriLOSEC] 20 mg PO BID 02/26/17 [History] Potassium Chloride [Klor-Con 10] 10 meq PO DAILY 02/26/17 [History] Warfarin [Coumadin] 2 mg PO VERDUGO 02/26/17 [History] cephALEXin [Keflex] 500 mg PO BID 05/05/17 [History] Furosemide [Lasix] 40 mg PO BID #30 05/09/17 [Rx] HYDROcodone/Acet 5/325 mg [[place] 5-325 mg] 1 tab PO Q4HR PRN #15 tablet [Rx] Warfarin [Coumadin] 1 mg PO DAILY 05/09/17 [History] Warfarin [Coumadin] 2 mg PO WE 05/09/17 [History] 3 Allergy/AdvReac Type Severity Reaction Status Date / Time Sulfa (Sulfonamide Allergy See Verified 05/05/17 11:42 Antibiotics) Comments Assessment & Plan - Prognosis Prognosis: Fair Procedures - Intervention Interventions: Other (Physician to review dosage and time of medication. Medication to be moved closer to therapy session. Revise therapy schedule to include shorter sessions within standard session and to occur primarily in the AM)
[2017-05-15] MEDS ORDERED: *HR* Warfarin 2 MG TABLET PO ONE (18:00)
[2017-05-15] MEDS ORDERED: *HR* Warfarin 2 MG TABLET PO SCH (18:00)
[2017-05-16 05:38] LABS: Prothrombin Time 22.1 Seconds (9.4-12.1)
[2017-05-16] MEDS: Ondansetron ODT 4 MG TAB.RAPDIS SL PRN ×2 (06:49→18:26)
[2017-05-16] MEDS: *HR* Amiodarone 200 MG TABLET PO SCH (07:54)
[2017-05-16] MEDS: Furosemide 40 MG TABLET PO SCH ×2 (07:55→17:13)
[2017-05-16] MEDS: *HR* HYDROcodone/Acet 5/325 mg TABLET PO PRN ×2 (07:55→12:34)
[2017-05-16] MEDS: cephALEXin 500 MG CAPSULE PO SCH ×2 (07:55→20:59)
[2017-05-16] MEDS: Cyanocobalamin (B-12) 1,000 MCG TABLET PO SCH (07:55)
[2017-05-16] MEDS: BIOTIN 1 MG PO SCH (07:55)
[2017-05-16] MEDS: Cholecalciferol (D-3) 1,000 UNIT TABLET PO SCH (07:55)
[2017-05-16] MEDS: Lisinopril 20 MG TABLET PO SCH ×2 (07:55→20:59)
[2017-05-16] MEDS ORDERED: *HR* Warfarin 2 MG TABLET PO ONE (18:00)
--- NOTE | 2017-05-16 19:28 | Internal Med Progress Note ---
Date of Encounter: 05/16/17 Time of Encounter: 19:26 - Assessment and plan (1) Humeral surgical neck fracture Current Visit: No Status: Acute Assessment and plan: stable , pain is stable as well Qualifiers: Encounter type: subsequent encounter Fracture type: closed Fracture morphology: unspecified fracture morphology Fracture alignment: nondisplaced Laterality: right Fracture healing: with routine healing Qualified Code(s) : S42.214D - Unspecified nondisplaced fracture of surgical neck of right humerus , subsequent encounter for fracture with routine healing (2) Acute kidney injury superimposed on chronic kidney disease Current Visit: No Status: Acute Assessment and plan: creatinine mildly high followup no further management needed (3) Type 2 diabetes mellitus Current Visit: No Status: Chronic Assessment and plan: on meds stable Qualifiers: Diabetes mellitus complication status: with kidney complications Diabetes mellitus complication detail: with chronic kidney disease Diabetes mellitus [facility] insulin use: without rodent exterminator use Chronic kidney disease stage: stage 3 (moderate) Qualified Code(s): E11.22 - Type 2 diabetes mellitus with diabetic chronic kidney disease; N18.3 - Chronic kidney disease, stage 3 ( moderate) (4) Atrial fibrillation Current Visit: No Status: Chronic Assessment and plan: on medications rate is stable pulse is stable . INR is stable Qualifiers: Atrial fibrillation type: chronic Qualified Code(s): I48.2 - Chronic atrial fibrillation (5) Coronary artery disease Current Visit: No Status: Chronic Assessment and plan: no chest pain stable continue present medication Qualifiers: Coronary Disease-Associated Artery/Lesion type: [place] artery [place] vs. transplanted heart: [place] heart Associated angina: without angina Qualified Code(s): I25.10 - Atherosclerotic heart disease of [place] coronary artery without angina pectoris (6) CHF (congestive heart failure) Current Visit: No Status: Chronic Assessment and plan: not an active issue at the resent time she does have spme swelling in her feet but able to use one pillow without any issue Qualifiers: Congestive heart failure type: combined Congestive heart failure chronicity : acute on chronic Qualified Code(s): I50.43 - Acute on chronic combined systolic (congestive) and diastolic (congestive) heart failure - Subjective Interval history: Seen for th first time as followup /no acute issues hip pain is well controlled on meds and is always on walking - Constitutional Vitals: Temp Pulse Resp BP Pulse Ox 97.9 F 61 18 120/55 93 05/16/17 19:19 05/16/17 19:19 05/16/17 19:19 05/16/17 19:19 05/16/17 19:19 General appearance: Present: A&O X 3, pleasant, answers questions appropriately. Absent: no acute distress - Head Head exam: Present: atraumatic - Eye Eye exam: Present: EOMI, PERRL - ENT ENT exam: Present: normal exam - Neck Neck exam general surgery: Present: supple. Absent: tenderness, nuchal rigidity , thyromegaly - Respiratory Respiratory exam: Present: CTAB. Absent: chest wall tenderness, respiratory distress, stridor, wheezes, tachypnea - Cardiovascular Cardiovascular exam: Present: irregular rhythm, +S1, +S2. Absent: clicks, gallop Additional comments: soft systolic mummer appreciated at the mitral area no radiation has packe maker and old scare on the elft side which was where her old pacemaker was removed rate is slow but irregular - GI/Abdominal GI/Abdominal exam: Present: normal bowel sounds, soft. Absent: guarding, rebound, rigid - Extremities Exam Extremities exam: Present: pedal edema Additional comments: pitting both sides no calf tenderness noted - Neurological Exam Neurological exam: Present: CN II-XII intact, oriented X3, strengths equal and symetr throughout. Absent: facial droop, speech deficit Additional comments: normal examination Internal Medicine: Result - Labs CBC & Chem 7: 05/13/17 05:45 05/14/17 05:45 Labs: h/h stable but low - ABG Interpretation ABG results: PT/INR, D-dimer PT 22.1 Seconds (9.4-12.1) H 05/16/17 05:20 Consult Discharge Plan - Plan Referrals: Gia Bishop MD [Primary Care Provider] - (Follow up with Yadira Raymond 05/22/17 at 11:30 Follow up with Derick Hernandez 06/19/17 at 11:00 Follow up with PCP Gia Anthony at D/C)
[2017-05-17] MEDS: Ondansetron ODT 4 MG TAB.RAPDIS SL PRN ×2 (03:26→12:45)
[2017-05-17 05:48] LABS: INR 2.1
[2017-05-17] MEDS: *HR* HYDROcodone/Acet 5/325 mg TABLET PO PRN ×3 (05:51→15:38)
[2017-05-17] MEDS: *HR* Amiodarone 200 MG TABLET PO SCH (09:03)
[2017-05-17] MEDS: Cholecalciferol (D-3) 1,000 UNIT TABLET PO SCH (09:04)
[2017-05-17] MEDS: Lisinopril 20 MG TABLET PO SCH ×2 (09:04→20:24)
[2017-05-17] MEDS: Cyanocobalamin (B-12) 1,000 MCG TABLET PO SCH (09:05)
[2017-05-17] MEDS: Furosemide 40 MG TABLET PO SCH ×2 (09:05→16:49)
[2017-05-17] MEDS: BIOTIN 1 MG PO SCH (09:06)
[2017-05-17] MEDS: cephALEXin 500 MG CAPSULE PO SCH ×2 (09:12→20:24)
--- NOTE | 2017-05-17 16:50 | Internal Med Progress Note ---
Date of Encounter: 05/17/17 Time of Encounter: 16:48 - Assessment and plan (1) Humeral surgical neck fracture Current Visit: Yes Status: Acute Assessment and plan: stable getting PT pain is reasonable well controlled prn meds Qualifiers: Encounter type: subsequent encounter Fracture type: closed Fracture morphology: unspecified fracture morphology Fracture alignment: nondisplaced Laterality: right Fracture healing: with routine healing Qualified Code(s) : S42.214D - Unspecified nondisplaced fracture of surgical neck of right humerus , subsequent encounter for fracture with routine healing (2) Acute kidney injury superimposed on chronic kidney disease Current Visit: No Status: Chronic Assessment and plan: labs ordered for tomorrow otherwise stable (3) Type 2 diabetes mellitus Current Visit: No Status: Chronic Assessment and plan: stable no new change HBa1C for tomorrow Diet control Qualifiers: Diabetes mellitus complication status: with kidney complications Diabetes mellitus complication detail: with chronic kidney disease Diabetes mellitus longterm insulin use: without watermaster use Chronic kidney disease stage: stage 3 (moderate) Qualified Code(s): E11.22 - Type 2 diabetes mellitus with diabetic chronic kidney disease; N18.3 - Chronic kidney disease, stage 3 ( moderate) (4) Atrial fibrillation Current Visit: No Status: Chronic Assessment and plan: stable INR stable Qualifiers: Atrial fibrillation type: chronic Qualified Code(s): I48.2 - Chronic atrial fibrillation (5) Coronary artery disease Current Visit: No Status: Chronic Assessment and plan: stable no new change continue present medications Qualifiers: Coronary Disease-Associated Artery/Lesion type: [place] artery [place] vs. transplanted heart: [place] heart Associated angina: without angina Qualified Code(s): I25.10 - Atherosclerotic heart disease of [place] coronary artery without angina pectoris (6) CHF (congestive heart failure) Current Visit: No Status: Chronic Assessment and plan: no active failure she has B edema on lasix labs pending tomorrow no HJR or JVD Qualifiers: Congestive heart failure type: combined Congestive heart failure chronicity : acute on chronic Qualified Code(s): I50.43 - Acute on chronic combined systolic (congestive) and diastolic (congestive) heart failure - Subjective Interval history: doing better then yesterday still has pain when does her pT otherwise she is fine has some cough not productive no fever or chill - Constitutional Vitals: Temp Pulse Resp BP Pulse Ox 98.4 F 113 18 127/68 95 05/17/17 11:29 05/17/17 11:29 05/17/17 11:29 05/17/17 11:29 05/17/17 11:29 General appearance: Present: A&O X 3, pleasant, answers questions appropriately. Absent: no acute distress - Head Head exam: Present: atraumatic - Eye Eye exam: Present: EOMI, PERRL Pupils: Present: PERRL - Neck Neck exam general surgery: Present: supple. Absent: tenderness, nuchal rigidity - Respiratory Respiratory exam: Present: CTAB. Absent: respiratory distress, rhonchi, stridor , wheezes, tachypnea Additional comments: has some mild crackles but cleared by cough no basal crackles - Cardiovascular Cardiovascular exam: Present: irregular rhythm, +S1, +S3. Absent: JVD - GI/Abdominal GI/Abdominal exam: Present: normal bowel sounds, soft. Absent: guarding, rebound - Neurological Exam Neurological exam: Present: CN II-XII intact, oriented X3, no focal deficits, strengths equal and symetr throughout. Absent: facial droop, speech deficit Internal Medicine: Result - Labs CBC & Chem 7: 05/13/17 05:45 05/14/17 05:45 - ABG Interpretation ABG results: PT/INR, D-dimer PT 23.0 Seconds (9.4-12.1) H 05/17/17 05:00 - VTE Documentation of Mechanical Device: Graduated compression elastic hosiery Consult Discharge Plan - Plan Referrals: Gia Bishop MD [Primary Care Provider] - (Follow up with Yadira Raymond 05/22/17 at 11:30 Follow up with Derick Hernandez 06/19/17 at 11:00 Follow up with PCP Gia Anthony at D/C)
[2017-05-17] MEDS ORDERED: *HR* Warfarin 2 MG TABLET PO ONE (18:00)
[2017-05-18] MEDS: Ondansetron ODT 4 MG TAB.RAPDIS SL PRN ×2 (03:14→08:37)
[2017-05-18 06:00] LABS: Basophils # 0.1 K/mcL (0.0-0.2); Basophils % 0.7 %; Eosinophils # 0.3 K/mcL (0.0-0.6); Eosinophils % 3.8 %; Hematocrit 26.6 % (35.3-44.9); Hemoglobin 8.9 g/dL (11.5-15.4); Immature Granulocytes % 0.7 % (0-4); Lymphocytes # 1.1 K/mcL (0.6-4.6); Lymphocytes % 14.8 %; Mean Corpuscular HGB Conc 33.5 g/dL (31.6-35.5); Mean Corpuscular Hemoglobin 30.2 pg (28.0-33.3); Mean Corpuscular Volume 90.2 fL (83.0-100.0); Mean Platelet Volume 12.2 fL (9.4-12.4); Monocytes # 0.4 K/mcL (0.0-1.3); Monocytes % 5.6 %; Neutrophils # 5.7 K/mcL (1.6-8.9); Platelet Count 226 K/mcL (140-400); Red Blood Count 2.95 M/mcL (3.82-4.97); Red Cell Distribution Width 17.2 % (11.5-14.5); Segmented Neutrophils % 74.4 %
[2017-05-18 06:03] LABS: INR 2.3; Prothrombin Time 24.7 Seconds (9.4-12.1)
[2017-05-18 06:11] LABS: Calcium 8.2 mg/dL (8.6-10.8); Potassium 5.2 mEq/L (3.5-4.5)
[2017-05-18] MEDS: *HR* HYDROcodone/Acet 5/325 mg TABLET PO PRN ×2 (06:22→12:12)
[2017-05-18] MEDS: traMADol 50 MG TABLET PO PRN (09:04)
[2017-05-18] MEDS: *HR* Amiodarone 200 MG TABLET PO SCH (09:05)
[2017-05-18] MEDS: cephALEXin 500 MG CAPSULE PO SCH ×2 (09:05→21:16)
[2017-05-18] MEDS: Cyanocobalamin (B-12) 1,000 MCG TABLET PO SCH (09:05)
[2017-05-18] MEDS: Lisinopril 20 MG TABLET PO SCH ×2 (09:05→21:16)
[2017-05-18] MEDS: Furosemide 40 MG TABLET PO SCH (09:05)
[2017-05-18] MEDS: Cholecalciferol (D-3) 1,000 UNIT TABLET PO SCH (09:06)
[2017-05-18] MEDS: BIOTIN 1 MG PO SCH (09:06)
--- NOTE | 2017-05-18 09:19 | Internal Med Progress Note ---
Date of Encounter: 05/18/17 Time of Encounter: 09:17 - Assessment and plan (1) Humeral surgical neck fracture Current Visit: Yes Status: Acute Assessment and plan: stable pain is well controlled Qualifiers: Encounter type: subsequent encounter Fracture type: closed Fracture morphology: unspecified fracture morphology Fracture alignment: nondisplaced Laterality: right Fracture healing: with routine healing Qualified Code(s) : S42.214D - Unspecified nondisplaced fracture of surgical neck of right humerus , subsequent encounter for fracture with routine healing (2) Acute kidney injury superimposed on chronic kidney disease Current Visit: No Status: Chronic Assessment and plan: Renal function deteriorated , on high dose of lasix and YULIYA , decrease lisinopril from BID dose to once a day 20 mg , also decrease her lasix and followup renal function most likely prerenal in nature clinically she is not in failure (3) Type 2 diabetes mellitus Current Visit: No Status: Chronic Assessment and plan: stable no Continue present medications Qualifiers: Diabetes mellitus complication status: with kidney complications Diabetes mellitus complication detail: with chronic kidney disease Diabetes mellitus [employer] insulin use: without nursing home use Chronic kidney disease stage: stage 3 (moderate) Qualified Code(s): E11.22 - Type 2 diabetes mellitus with diabetic chronic kidney disease; N18.3 - Chronic kidney disease, stage 3 ( moderate) (4) Atrial fibrillation Current Visit: No Status: Chronic Assessment and plan: rate stable INR stable Qualifiers: Atrial fibrillation type: chronic Qualified Code(s): I48.2 - Chronic atrial fibrillation (5) Coronary artery disease Current Visit: No Status: Chronic Assessment and plan: no chest pain base line no new change Qualifiers: Coronary Disease-Associated Artery/Lesion type: [place] artery [place] vs. transplanted heart: [place] heart Associated angina: without angina Qualified Code(s): I25.10 - Atherosclerotic heart disease of [place] coronary artery without angina pectoris (6) CHF (congestive heart failure) Current Visit: No Status: Chronic Assessment and plan: stable decrease lasix and followup Qualifiers: Congestive heart failure type: combined Congestive heart failure chronicity : acute on chronic Qualified Code(s): I50.43 - Acute on chronic combined systolic (congestive) and diastolic (congestive) heart failure - Subjective Interval history: feeling much better cough has improved a lot and she is feeling less pain . - Constitutional Vitals: Temp Pulse Resp BP Pulse Ox 98.4 F 61 20 129/56 95 09/30/17 06:46 05/18/17 06:46 05/18/17 06:46 05/18/17 06:46 05/18/17 06:46 General appearance: Present: A&O X 3, pleasant, answers questions appropriately. Absent: no acute distress - Eye Eye exam: Present: EOMI, PERRL Pupils: Present: PERRL - Neck Neck exam general surgery: Present: supple. Absent: tenderness, nuchal rigidity - Respiratory Respiratory exam: Present: CTAB. Absent: rales, respiratory distress, rhonchi, stridor, wheezes, tachypnea - Cardiovascular Cardiovascular exam: Present: irregular rhythm, +S1, +S2. Absent: JVD - GI/Abdominal GI/Abdominal exam: Present: normal bowel sounds, soft. Absent: distended, firm , guarding, rebound, rigid - Extremities Exam Extremities exam: Present: pedal edema. Absent: tenderness Additional comments: pitting edema B - Neurological Exam Neurological exam: Present: alert, altered, CN II-XII intact, no focal deficits , strengths equal and symetr throughout. Absent: facial droop, speech deficit Internal Medicine: Result - Labs CBC & Chem 7: 05/18/17 05:57 05/18/17 05:57 Labs: Short CBC 05/18/17 Range/Units 05:57 WBC 7.7 (4.3-11.1) K/mcL Hgb 8.9 L (11.5-15.4) g/dL Hct 26.6 L (35.3-44.9) % Plt Count 226 (140-400) K/mcL Neutrophils # 5.7 (1.6-8.9) K/mcL BMP 05/18/17 05:57 Sodium 138 Potassium 5.2 H Chloride 106 Carbon Dioxide 24 BUN 42 H Creatinine 1.70 H Glucose 92 Calcium 8.2 L - ABG Interpretation ABG results: PT/INR, D-dimer PT 24.7 Seconds (9.4-12.1) H 05/18/17 05:57 - VTE Documentation of Mechanical Device: Graduated compression elastic hosiery Consult Discharge Plan - Plan Referrals: Gia Bishop MD [Primary Care Provider] - (Follow up with Yadira Raymond 05/22/17 at 11:30 Follow up with Derick Hernandez 06/19/17 at 11:00 Follow up with PCP Gia Anthony at D/C)
[2017-05-18] MEDS ORDERED: Furosemide 20 MG TABLET PO SCH (17:00)
[2017-05-18] MEDS ORDERED: *HR* Warfarin 3 MG TABLET PO ONE (18:00)
[2017-05-18 18:54] LABS: Hemoglobin A1C 4.7 %
[2017-05-19 05:46] LABS: INR 2.4
[2017-05-19 05:55] LABS: Calcium 8.3 mg/dL (8.6-10.8); Potassium 4.6 mEq/L (3.5-4.5)
[2017-05-19] MEDS: *HR* HYDROcodone/Acet 5/325 mg TABLET PO PRN ×2 (06:24→21:08)
[2017-05-19] MEDS: Cyanocobalamin (B-12) 1,000 MCG TABLET PO SCH (08:09)
[2017-05-19] MEDS: *HR* Amiodarone 200 MG TABLET PO SCH (08:11)
[2017-05-19] MEDS: Lisinopril 20 MG TABLET PO SCH (08:11)
[2017-05-19] MEDS: Cholecalciferol (D-3) 1,000 UNIT TABLET PO SCH (08:12)
[2017-05-19] MEDS: cephALEXin 500 MG CAPSULE PO SCH ×2 (08:12→21:02)
[2017-05-19] MEDS: Furosemide 40 MG TABLET PO SCH (08:12)
[2017-05-19] MEDS: BIOTIN 1 MG PO SCH (08:14)
--- NOTE | 2017-05-19 09:27 | Internal Med Progress Note ---
Date of Encounter: 05/19/17 Time of Encounter: 09:25 - Assessment and plan (1) Humeral surgical neck fracture Current Visit: Yes Status: Acute Assessment and plan: stable pain getting PT no new changes Qualifiers: Encounter type: subsequent encounter Fracture type: closed Fracture morphology: unspecified fracture morphology Fracture alignment: nondisplaced Laterality: right Fracture healing: with routine healing Qualified Code(s) : S42.214D - Unspecified nondisplaced fracture of surgical neck of right humerus , subsequent encounter for fracture with routine healing (2) Acute kidney injury superimposed on chronic kidney disease Current Visit: No Status: Chronic Assessment and plan: renal function slowly worse today Lasix and YULIYA were adjsuted yerstaday . will follow BP is s table Weight is same she is negative fluid balance mostl likely pre renal in nature (3) Type 2 diabetes mellitus Current Visit: No Status: Chronic Assessment and plan: stable no new change Qualifiers: Diabetes mellitus complication status: with kidney complications Diabetes mellitus complication detail: with chronic kidney disease Diabetes mellitus snf insulin use: without snf use Chronic kidney disease stage: stage 3 (moderate) Qualified Code(s): E11.22 - Type 2 diabetes mellitus with diabetic chronic kidney disease; N18.3 - Chronic kidney disease, stage 3 ( moderate) (4) Atrial fibrillation Current Visit: No Status: Chronic Assessment and plan: rate is s table on warfarin INR stable Qualifiers: Atrial fibrillation type: chronic Qualified Code(s): I48.2 - Chronic atrial fibrillation (5) Coronary artery disease Current Visit: No Status: Chronic Assessment and plan: no chest pain stable Qualifiers: Coronary Disease-Associated Artery/Lesion type: [place] artery [place] vs. transplanted heart: [place] heart Associated angina: without angina Qualified Code(s): I25.10 - Atherosclerotic heart disease of [place] coronary artery without angina pectoris (6) CHF (congestive heart failure) Current Visit: No Status: Chronic Assessment and plan: hx of CHF stable at the present time Qualifiers: Congestive heart failure type: combined Congestive heart failure chronicity : acute on chronic Qualified Code(s): I50.43 - Acute on chronic combined systolic (congestive) and diastolic (congestive) heart failure - Subjective Interval history: fno new complains she is feeling fine mild cough but its improving no PND or orthopnea - Constitutional Vitals: Temp Pulse Resp BP Pulse Ox 97.6 F 60 16 111/54 95 05/19/17 07:58 05/19/17 07:58 05/19/17 07:58 05/19/17 07:58 05/19/17 07:58 General appearance: Present: A&O X 3, pleasant, answers questions appropriately. Absent: no acute distress - Eye Eye exam: Present: EOMI, PERRL. Absent: scleral icterus, conjuntiva pink - Neck Neck exam general surgery: Present: supple. Absent: tenderness - Respiratory Respiratory exam: Present: CTAB. Absent: respiratory distress, rhonchi, stridor , wheezes, tachypnea Additional comments: essentailly clear mild crackles at the base but gets cleared with cough most likely athelectasis - Cardiovascular Cardiovascular exam: Present: +S1, +S2. Absent: irregular rhythm, JVD Additional comments: rate is stable - GI/Abdominal GI/Abdominal exam: Present: normal bowel sounds, soft. Absent: guarding, pulsatile mass, rebound, rigid - Extremities Exam Extremities exam: Present: pedal edema. Absent: tenderness Additional comments: pitting edema both sides improving slowly - Incison Incision: Present: clean and dry - Neurological Exam Neurological exam: Present: CN II-XII intact, oriented X3, no focal deficits. Absent: facial droop, speech deficit Internal Medicine: Result - Labs CBC & Chem 7: 05/18/17 05:57 05/19/17 05:30 Labs: BMP 05/19/17 05:30 Sodium 137 Potassium 4.6 H Chloride 107 Carbon Dioxide 22 BUN 48 H Creatinine 1.86 H Glucose 90 Calcium 8.3 L renal function getting worse slowly - ABG Interpretation ABG results: PT/INR, D-dimer PT 26.0 Seconds (9.4-12.1) H 05/19/17 05:30 - VTE Documentation of Mechanical Device: Graduated compression elastic hosiery Consult Discharge Plan - Plan Referrals: Gia Bishop MD [Primary Care Provider] - (Follow up with Yadira Raymond 05/22/17 at 11:30 Follow up with Derick Hernandez 06/19/17 at 11:00 Follow up with PCP Gia Anthony at D/C)
[2017-05-19] MEDS ORDERED: Acetaminophen 325 MG TABLET PO PRN (11:07)
[2017-05-19] MEDS ORDERED: *HR* Warfarin 3 MG TABLET PO ONE (18:00)
[2017-05-20 06:08] LABS: Basophils % 0.5 %; Eosinophils # 0.3 K/mcL (0.0-0.6); Eosinophils % 4.5 %; Hematocrit 26.4 % (35.3-44.9); Hemoglobin 8.8 g/dL (11.5-15.4); INR 2.3; Immature Granulocytes % 0.8 % (0-4); Lymphocytes # 1.2 K/mcL (0.6-4.6); Lymphocytes % 16.8 %; Mean Corpuscular HGB Conc 33.3 g/dL (31.6-35.5); Mean Corpuscular Hemoglobin 30.2 pg (28.0-33.3); Mean Corpuscular Volume 90.7 fL (83.0-100.0); Mean Platelet Volume 11.8 fL (9.4-12.4); Monocytes # 0.4 K/mcL (0.0-1.3); Monocytes % 5.3 %; Neutrophils # 5.3 K/mcL (1.6-8.9); Platelet Count 207 K/mcL (140-400); Prothrombin Time 25.3 Seconds (9.4-12.1); Red Blood Count 2.91 M/mcL (3.82-4.97); Red Cell Distribution Width 17.7 % (11.5-14.5); Segmented Neutrophils % 72.1 %
[2017-05-20] MEDS: *HR* HYDROcodone/Acet 5/325 mg TABLET PO PRN ×2 (06:29→13:06)
[2017-05-20 06:49] LABS: Calcium 8.3 mg/dL (8.6-10.8); Potassium 4.5 mEq/L (3.5-4.5)
[2017-05-20] MEDS: Cyanocobalamin (B-12) 1,000 MCG TABLET PO SCH (09:50)
[2017-05-20] MEDS: Lisinopril 20 MG TABLET PO SCH (09:50)
[2017-05-20] MEDS: Furosemide 40 MG TABLET PO SCH (09:50)
[2017-05-20] MEDS: *HR* Amiodarone 200 MG TABLET PO SCH (09:50)
[2017-05-20] MEDS: cephALEXin 500 MG CAPSULE PO SCH ×2 (09:51→20:56)
[2017-05-20] MEDS: Cholecalciferol (D-3) 1,000 UNIT TABLET PO SCH (09:51)
[2017-05-20] MEDS: BIOTIN 1 MG PO SCH (09:51)
[2017-05-20] MEDS: Ondansetron ODT 4 MG TAB.RAPDIS SL PRN (09:58)
--- NOTE | 2017-05-20 17:42 | Internal Med Progress Note ---
Date of Encounter: 05/20/17 Time of Encounter: 17:39 - Assessment and plan (1) Humeral surgical neck fracture Current Visit: Yes Status: Acute Assessment and plan: stable and improving in PT Qualifiers: Encounter type: subsequent encounter Fracture type: closed Fracture morphology: unspecified fracture morphology Fracture alignment: nondisplaced Laterality: right Fracture healing: with routine healing Qualified Code(s) : S42.214D - Unspecified nondisplaced fracture of surgical neck of right humerus , subsequent encounter for fracture with routine healing (2) Acute kidney injury superimposed on chronic kidney disease Current Visit: No Status: Chronic Assessment and plan: creatinine has increased to 2.1 , her weight is 75 kg which is less then 4 KG from last which I am sure is very accurate as well however clinically she is asymptomatic . If she continues to to gain weight at that point increase in Lasix should be considered , HTN is table Continue to follow (3) Type 2 diabetes mellitus Current Visit: No Status: Chronic Assessment and plan: stable and improving Qualifiers: Diabetes mellitus complication status: with kidney complications Diabetes mellitus complication detail: with chronic kidney disease Diabetes mellitus joint terminal attack controller insulin use: without joint terminal attack controller use Chronic kidney disease stage: stage 3 (moderate) Qualified Code(s): E11.22 - Type 2 diabetes mellitus with diabetic chronic kidney disease; N18.3 - Chronic kidney disease, stage 3 ( moderate) (4) Atrial fibrillation Current Visit: No Status: Chronic Assessment and plan: stable INR is stable Qualifiers: Atrial fibrillation type: chronic Qualified Code(s): I48.2 - Chronic atrial fibrillation (5) Coronary artery disease Current Visit: No Status: Chronic Qualifiers: Coronary Disease-Associated Artery/Lesion type: [place] artery [place] vs. transplanted heart: [place] heart Associated angina: without angina Qualified Code(s): I25.10 - Atherosclerotic heart disease of [place] coronary artery without angina pectoris (6) CHF (congestive heart failure) Current Visit: No Status: Chronic Assessment and plan: clinically stable , Qualifiers: Congestive heart failure type: combined Congestive heart failure chronicity : acute on chronic Qualified Code(s): I50.43 - Acute on chronic combined systolic (congestive) and diastolic (congestive) heart failure - Subjective Interval history: doing fine cough is much better no SOB able to lay flat no orthopnea - Constitutional Vitals: Temp Pulse Resp BP Pulse Ox 98.3 F 60 16 105/47 94 05/20/17 07:28 05/20/17 07:28 05/20/17 07:28 05/20/17 07:28 05/20/17 07:28 General appearance: Present: A&O X 3, pleasant, answers questions appropriately. Absent: no acute distress - Eye Eye exam: Present: EOMI, PERRL - Neck Neck exam general surgery: Present: supple. Absent: tenderness, nuchal rigidity Additional comments: no HJR or JVD - Cardiovascular Cardiovascular exam: Present: irregular rhythm, +S1, +S2. Absent: JVD - GI/Abdominal GI/Abdominal exam: Present: normal bowel sounds, soft. Absent: distended, guarding, rebound, rigid - Extremities Exam Extremities exam: Present: pedal edema. Absent: tenderness Additional comments: pitting edema both aide improving as compared to before Right side ++ left +++ - Incison Incision: Present: clean and dry, intact. Absent: inflamed, erythema Internal Medicine: Result - Labs CBC & Chem 7: 05/20/17 05:55 05/20/17 05:55 Labs: Short CBC 05/20/17 Range/Units 05:55 WBC 7.4 (4.3-11.1) K/mcL Hgb 8.8 L (11.5-15.4) g/dL Hct 26.4 L (35.3-44.9) % Plt Count 207 (140-400) K/mcL Neutrophils # 5.3 (1.6-8.9) K/mcL BMP 05/20/17 05:55 Sodium 136 Potassium 4.5 Chloride 107 Carbon Dioxide 21 BUN 62 H D Creatinine 2.16 H Glucose 85 Calcium 8.3 L - ABG Interpretation ABG results: PT/INR, D-dimer PT 25.3 Seconds (9.4-12.1) H 05/20/17 05:55 - VTE Documentation of Mechanical Device: Graduated compression elastic hosiery Consult Discharge Plan - Plan Referrals: Gia Bishop MD [Primary Care Provider] - (Follow up with Yadira Raymond 05/22/17 at 11:30 Follow up with Derick Hernandez 06/19/17 at 11:00 Follow up with PCP Gia Anthony at D/C)
[2017-05-20] MEDS ORDERED: *HR* Warfarin 3 MG TABLET PO ONE (18:00)
[2017-05-21] MEDS: Ondansetron ODT 4 MG TAB.RAPDIS SL PRN ×4 (04:28→17:21)
[2017-05-21 05:30] LABS: INR 2.1; Prothrombin Time 22.6 Seconds (9.4-12.1)
[2017-05-21 05:40] LABS: Calcium 8.3 mg/dL (8.6-10.8); Potassium 4.9 mEq/L (3.5-4.5)
[2017-05-21] MEDS: *HR* HYDROcodone/Acet 5/325 mg TABLET PO PRN ×3 (06:07→21:06)
[2017-05-21] MEDS: Cholecalciferol (D-3) 1,000 UNIT TABLET PO SCH (08:45)
[2017-05-21] MEDS: Lisinopril 20 MG TABLET PO SCH (08:45)
[2017-05-21] MEDS: *HR* Amiodarone 200 MG TABLET PO SCH (08:45)
[2017-05-21] MEDS: Furosemide 40 MG TABLET PO SCH (08:45)
[2017-05-21] MEDS: Cyanocobalamin (B-12) 1,000 MCG TABLET PO SCH (08:45)
[2017-05-21] MEDS: cephALEXin 500 MG CAPSULE PO SCH ×2 (08:45→21:06)
[2017-05-21] MEDS: BIOTIN 1 MG PO SCH (08:46)
--- NOTE | 2017-05-21 15:58 | Internal Med Progress Note ---
Date of Encounter: 05/21/17 Time of Encounter: 15:55 - Assessment and plan (1) Humeral surgical neck fracture Current Visit: Yes Status: Acute Assessment and plan: SEE above the reason she is currently here Qualifiers: Encounter type: subsequent encounter Fracture type: closed Fracture morphology: unspecified fracture morphology Fracture alignment: nondisplaced Laterality: right Fracture healing: with routine healing Qualified Code(s) : S42.214D - Unspecified nondisplaced fracture of surgical neck of right humerus , subsequent encounter for fracture with routine healing (2) Inability to ambulate due to knee Current Visit: No Status: Acute Assessment and plan: Patient's knee is the least of her right neck (3) Intertrochanteric fracture of left hip Current Visit: No Status: Acute Assessment and plan: Reason for reactive Qualifiers: Encounter type: subsequent encounter Fracture type: closed Fracture alignment: displaced Fracture healing: with routine healing Qualified Code(s ): S72.142D - Displaced intertrochanteric fracture of left femur, subsequent encounter for closed fracture with routine healing - Time Spent With Patient less than 15 minutes - Subjective Interval history: Patient has a lot of minor aches and pains and complaints. But overall is cooperating she is going to the gym and working with the therapist. She is up and dressed. Staff will not extend her for a few more days that she is showing some progress taking some steps etc. - Constitutional Vitals: Temp Pulse Resp BP Pulse Ox 98.3 F 60 16 121/50 95 05/21/17 07:00 05/21/17 07:00 05/21/17 07:00 05/21/17 07:00 05/21/17 07:00 General appearance: Present: A&O X 3, pleasant, answers questions appropriately. Absent: no acute distress - Head Head exam: Present: atraumatic, normal inspection, normocephalic - Neck Neck exam general surgery: Present: supple, trachea midline. Absent: lymphadenopathy - Respiratory Respiratory exam: Present: CTAB. Absent: accessory muscle use, rales, rhonchi, wheezes - Cardiovascular Cardiovascular exam: Present: RRR, +S1, +S2. Absent: diastolic murmur, gallop, rubs, systolic murmur Internal Medicine: Result - Labs CBC & Chem 7: 05/20/17 05:55 05/21/17 05:15 Labs: BMP 05/21/17 05:15 Sodium 135 L Potassium 4.9 H Chloride 106 Carbon Dioxide 24 BUN 68 H Creatinine 2.30 H Glucose 90 Calcium 8.3 L - ABG Interpretation ABG results: PT/INR, D-dimer PT 22.6 Seconds (9.4-12.1) H 05/21/17 05:15 - VTE Documentation of Mechanical Device: Graduated compression elastic hosiery Consult Discharge Plan - Plan Referrals: Gia Bishop MD [Primary Care Provider] - (Follow up with Yadira Raymond 05/22/17 at 11:30 Follow up with Derick Hernandez 06/19/17 at 11:00 Follow up with PCP Gia Anthony at D/C)
[2017-05-21] MEDS: *HR* Warfarin 2 MG TABLET PO SCH (17:19)
[2017-05-22] MEDS: Ondansetron ODT 4 MG TAB.RAPDIS SL PRN (05:07)
[2017-05-22 05:28] LABS: INR 2.2; Prothrombin Time 23.8 Seconds (9.4-12.1)
[2017-05-22] MEDS: *HR* HYDROcodone/Acet 5/325 mg TABLET PO PRN ×3 (06:33→20:39)
[2017-05-22] MEDS: Cyanocobalamin (B-12) 1,000 MCG TABLET PO SCH (08:01)
[2017-05-22] MEDS: cephALEXin 500 MG CAPSULE PO SCH ×2 (08:02→20:23)
[2017-05-22] MEDS: Cholecalciferol (D-3) 1,000 UNIT TABLET PO SCH (08:02)
[2017-05-22] MEDS: Furosemide 40 MG TABLET PO SCH (08:02)
[2017-05-22] MEDS: *HR* Amiodarone 200 MG TABLET PO SCH (08:02)
[2017-05-22] MEDS: Lisinopril 20 MG TABLET PO SCH (08:02)
[2017-05-22] MEDS: BIOTIN 1 MG PO SCH (08:03)
--- NOTE | 2017-05-22 12:27 | Physical Med Progress Note ---
Date of Encounter: 05/22/17 Time of Encounter: 12:20 Physical Medicine-PN: Subj Interval history: PMR PCC note Patient has made progress. CGA for wheelchair transfers, CGA ambulating 8 feet with walker. Her pain has improved. She requires modA for lower body dressing, CGA for toilet transfers. Fatigue is improving. Plan to continue intensive PT/OT/TR. Plan for discharge on 05/31/17. - Constitutional Vitals: Vital Signs Temp Pulse Resp BP Pulse Ox 05/22/17 06:00 97.6 F 60 16 118/57 95 05/21/17 18:51 98.0 F 60 15 111/52 97 Intake and Output 05/21/17 05/22/17 05/22/17 23:59 07:59 15:59 Intake Total 500 / 500 100 / 100 300 / 300 Output Total 300 / 300 Balance 500 / 500 -200 / -200 300 / 300 Intake: Oral 500 / 500 100 / 100 300 / 300 Output: Urine 300 / 300 Other: Meal Breakfast Percent of Meal Consumed 45% Weight 74.108 kg Patient Weight 05/22/17 23:59 Weight 74.108 kg Physical Medicine-PN: Obj Data - Labs CBC & Chem 7: 05/20/17 05:55 05/21/17 05:15 Labs: Laboratory Results - last 24 hr 05/22/17 05:10 PT 23.8 H INR 2.2 - ABG Interpretation ABG results: PT/INR, D-dimer PT 23.8 Seconds (9.4-12.1) H 05/22/17 05:10 - VTE Documentation of Mechanical Device: Graduated compression elastic hosiery Consult Discharge Plan - Plan Referrals: Gia Bishop MD [Primary Care Provider] - (Follow up with Yadira Raymond 05/22/17 at 11:30 Follow up with Derick Hernandez 06/19/17 at 11:00 Follow up with PCP Gia Anthony at D/C)
[2017-05-22] MEDS: *HR* Warfarin 2 MG TABLET PO SCH (16:48)
[2017-05-23] MEDS: Ondansetron ODT 4 MG TAB.RAPDIS SL PRN (04:31)
[2017-05-23 05:33] LABS: Basophils # 0.1 K/mcL (0.0-0.2); Basophils % 0.8 %; Eosinophils # 0.3 K/mcL (0.0-0.6); Eosinophils % 3.9 %; Hematocrit 26.6 % (35.3-44.9); Hemoglobin 8.7 g/dL (11.5-15.4); Immature Granulocytes % 0.5 % (0-4); Lymphocytes # 1.1 K/mcL (0.6-4.6); Lymphocytes % 17.5 %; Mean Corpuscular HGB Conc 32.7 g/dL (31.6-35.5); Mean Corpuscular Hemoglobin 30.1 pg (28.0-33.3); Mean Platelet Volume 12.3 fL (9.4-12.4); Monocytes # 0.5 K/mcL (0.0-1.3); Monocytes % 7.1 %; Neutrophils # 4.5 K/mcL (1.6-8.9); Platelet Count 192 K/mcL (140-400); Red Blood Count 2.89 M/mcL (3.82-4.97); Red Cell Distribution Width 17.6 % (11.5-14.5); Segmented Neutrophils % 70.2 %
[2017-05-23 05:37] LABS: INR 2.2
[2017-05-23] MEDS: *HR* HYDROcodone/Acet 5/325 mg TABLET PO PRN ×3 (06:04→22:15)
[2017-05-23] MEDS: Cholecalciferol (D-3) 1,000 UNIT TABLET PO SCH (08:48)
[2017-05-23] MEDS: Cyanocobalamin (B-12) 1,000 MCG TABLET PO SCH (08:48)
[2017-05-23] MEDS: cephALEXin 500 MG CAPSULE PO SCH ×2 (08:48→20:30)
[2017-05-23] MEDS: *HR* Amiodarone 200 MG TABLET PO SCH (08:49)
[2017-05-23] MEDS: Lisinopril 20 MG TABLET PO SCH (08:49)
[2017-05-23] MEDS: BIOTIN 1 MG PO SCH (08:49)
[2017-05-23] MEDS: Furosemide 40 MG TABLET PO SCH (08:49)
--- NOTE | 2017-05-23 13:11 | Internal Med Progress Note ---
Date of Encounter: 05/23/17 Time of Encounter: 13:09 - Assessment and plan (1) Humeral surgical neck fracture Current Visit: Yes Status: Acute Assessment and plan: Patient's here for rehabilitation after the hip fracture Qualifiers: Encounter type: subsequent encounter Fracture type: closed Fracture morphology: unspecified fracture morphology Fracture alignment: nondisplaced Laterality: right Fracture healing: with routine healing Qualified Code(s) : S42.214D - Unspecified nondisplaced fracture of surgical neck of right humerus , subsequent encounter for fracture with routine healing (2) Inability to ambulate due to knee Current Visit: No Status: Acute (3) Intertrochanteric fracture of left hip Current Visit: No Status: Acute Assessment and plan: She status post correction of the hip fracture Qualifiers: Encounter type: subsequent encounter Fracture type: closed Fracture alignment: displaced Fracture healing: with routine healing Qualified Code(s ): S72.142D - Displaced intertrochanteric fracture of left femur, subsequent encounter for closed fracture with routine healing - Time Spent With Patient less than 15 minutes - Subjective Interval history: Patient smiling eating states M doing well. I spoke with therapist in the states she walks 3 times which is significant advancement for her. We will continue therapy - Constitutional Vitals: Temp Pulse Resp BP Pulse Ox 97.9 F 60 20 111/55 93 05/23/17 07:00 05/23/17 07:00 05/23/17 07:00 05/23/17 07:00 05/23/17 07:00 General appearance: Present: A&O X 3, pleasant, answers questions appropriately. Absent: no acute distress - Head Head exam: Present: atraumatic, normal inspection, normocephalic - Neck Neck exam general surgery: Present: supple, trachea midline. Absent: lymphadenopathy - Respiratory Respiratory exam: Present: CTAB. Absent: accessory muscle use, rales, rhonchi, wheezes - Cardiovascular Cardiovascular exam: Present: RRR, +S1, +S2. Absent: diastolic murmur, gallop, rubs, systolic murmur - GI/Abdominal GI/Abdominal exam: Present: normal bowel sounds, soft, no peritoneal signs. Absent: distended, tenderness Internal Medicine: Result - Labs CBC & Chem 7: 05/23/17 05:15 05/21/17 05:15 Labs: Short CBC 05/23/17 Range/Units 05:15 WBC 6.4 (4.3-11.1) K/mcL Hgb 8.7 L (11.5-15.4) g/dL Hct 26.6 L (35.3-44.9) % Plt Count 192 (140-400) K/mcL Neutrophils # 4.5 (1.6-8.9) K/mcL Chronic renal failure is noted. - ABG Interpretation ABG results: PT/INR, D-dimer PT 24.0 Seconds (9.4-12.1) H 05/23/17 05:15 - VTE Documentation of Mechanical Device: Graduated compression elastic hosiery Consult Discharge Plan - Plan Referrals: Gia Bishop MD [Primary Care Provider] - (Follow up with Yadira Raymond 05/22/17 at 11:30 Follow up with Derick Hernandez 06/19/17 at 11:00 Follow up with PCP Gia Anthony at D/C)
[2017-05-23] MEDS: *HR* Warfarin 2 MG TABLET PO SCH (17:51)
[2017-05-24] MEDS: Ondansetron ODT 4 MG TAB.RAPDIS SL PRN ×2 (04:07→09:39)
[2017-05-24] MEDS: traMADol 50 MG TABLET PO PRN ×2 (06:50→20:37)
[2017-05-24] MEDS: Cholecalciferol (D-3) 1,000 UNIT TABLET PO SCH (09:17)
[2017-05-24] MEDS: Lisinopril 20 MG TABLET PO SCH (09:18)
[2017-05-24] MEDS: *HR* Amiodarone 200 MG TABLET PO SCH (09:18)
[2017-05-24] MEDS: Cyanocobalamin (B-12) 1,000 MCG TABLET PO SCH (09:18)
[2017-05-24] MEDS: Furosemide 40 MG TABLET PO SCH (09:18)
[2017-05-24] MEDS: BIOTIN 1 MG PO SCH (09:22)
[2017-05-24] MEDS: cephALEXin 500 MG CAPSULE PO SCH (09:39)
[2017-05-24] MEDS ORDERED: cephALEXin 500 MG CAPSULE PO ONE (09:45)
[2017-05-24] MEDS: *HR* HYDROcodone/Acet 5/325 mg TABLET PO PRN (11:22)
--- NOTE | 2017-05-24 14:17 | Internal Med Progress Note ---
Date of Encounter: 05/24/17 Time of Encounter: 14:15 - Assessment and plan (1) Humeral surgical neck fracture Current Visit: Yes Status: Acute Assessment and plan: She is here for rehabilitation status post femoral neck fracture Qualifiers: Encounter type: subsequent encounter Fracture type: closed Fracture morphology: unspecified fracture morphology Fracture alignment: nondisplaced Laterality: right Fracture healing: with routine healing Qualified Code(s) : S42.214D - Unspecified nondisplaced fracture of surgical neck of right humerus , subsequent encounter for fracture with routine healing (2) Inability to ambulate due to knee Current Visit: No Status: Acute (3) Intertrochanteric fracture of left hip Current Visit: No Status: Acute Assessment and plan: Previous injury to the knee. Most recently intertrochanteric fracture left hip Qualifiers: Encounter type: subsequent encounter Fracture type: closed Fracture alignment: displaced Fracture healing: with routine healing Qualified Code(s ): S72.142D - Displaced intertrochanteric fracture of left femur, subsequent encounter for closed fracture with routine healing - Time Spent With Patient less than 15 minutes - Subjective Interval history: Patient smiling eating states M doing well. I spoke with therapist in the states she walks 3 times which is significant advancement for her. We will continue therapy - Constitutional Vitals: Temp Pulse Resp BP Pulse Ox 97.5 F L 60 18 109/62 96 05/24/17 07:18 05/24/17 07:18 05/24/17 07:18 05/24/17 07:18 05/24/17 07:18 General appearance: Present: A&O X 3, pleasant, answers questions appropriately. Absent: no acute distress - Head Head exam: Present: atraumatic, normal inspection, normocephalic - Neck Neck exam general surgery: Present: supple, trachea midline. Absent: lymphadenopathy - Respiratory Respiratory exam: Present: CTAB. Absent: accessory muscle use, rales, rhonchi, wheezes - Cardiovascular Cardiovascular exam: Present: RRR, +S1, +S2. Absent: diastolic murmur, gallop, rubs, systolic murmur Internal Medicine: Result - Labs CBC & Chem 7: 05/23/17 05:15 05/21/17 05:15 Labs: Chronic renal first noted following BUN/creatinine - ABG Interpretation ABG results: PT/INR, D-dimer PT 24.0 Seconds (9.4-12.1) H 05/23/17 05:15 - VTE Documentation of Mechanical Device: Graduated compression elastic hosiery Consult Discharge Plan - Plan Referrals: Gia Bishop MD [Primary Care Provider] - (Follow up with Yadira Raymond 05/22/17 at 11:30 Follow up with Derick Hernandez 06/19/17 at 11:00 Follow up with PCP Gia Anthony at D/C)
[2017-05-24] MEDS: *HR* Warfarin 2 MG TABLET PO SCH (18:36)
[2017-05-25] MEDS: Ondansetron ODT 4 MG TAB.RAPDIS SL PRN (04:33)
[2017-05-25 05:50] LABS: INR 2.2; Prothrombin Time 23.6 Seconds (9.4-12.1)
[2017-05-25] MEDS: *HR* HYDROcodone/Acet 5/325 mg TABLET PO PRN (06:29)
[2017-05-25] MEDS: Cholecalciferol (D-3) 1,000 UNIT TABLET PO SCH (09:18)
[2017-05-25] MEDS: *HR* Amiodarone 200 MG TABLET PO SCH (09:18)
[2017-05-25] MEDS: Cyanocobalamin (B-12) 1,000 MCG TABLET PO SCH (09:18)
[2017-05-25] MEDS: BIOTIN 1 MG PO SCH (09:19)
[2017-05-25] MEDS: Lisinopril 20 MG TABLET PO SCH (09:19)
[2017-05-25] MEDS: Furosemide 40 MG TABLET PO SCH (09:19)
[2017-05-25] MEDS ORDERED: Warfarin perPT PO PRN (18:00)
[2017-05-25] MEDS: *HR* Warfarin 2 MG TABLET PO SCH (18:07)
[2017-05-25] MEDS: traMADol 50 MG TABLET PO PRN (20:17)
[2017-05-26] MEDS: Ondansetron ODT 4 MG TAB.RAPDIS SL PRN (01:21)
[2017-05-26 05:23] LABS: INR 2.3; Prothrombin Time 25.2 Seconds (9.4-12.1)
[2017-05-26] MEDS: *HR* HYDROcodone/Acet 5/325 mg TABLET PO PRN (06:08)
[2017-05-26] MEDS: BIOTIN 1 MG PO SCH (07:36)
[2017-05-26] MEDS: Furosemide 40 MG TABLET PO SCH (07:38)
[2017-05-26] MEDS: *HR* Amiodarone 200 MG TABLET PO SCH (07:38)
[2017-05-26] MEDS: Lisinopril 20 MG TABLET PO SCH (07:38)
[2017-05-26] MEDS: Cyanocobalamin (B-12) 1,000 MCG TABLET PO SCH (07:39)
[2017-05-26] MEDS: Cholecalciferol (D-3) 1,000 UNIT TABLET PO SCH (07:39)
[2017-05-26] MEDS: *HR* Warfarin 2 MG TABLET PO SCH (17:43)
[2017-05-26] MEDS: traMADol 50 MG TABLET PO PRN (20:17)
[2017-05-27 05:51] LABS: Basophils % 0.5 %; Eosinophils # 0.3 K/mcL (0.0-0.6); Eosinophils % 3.8 %; Hematocrit 26.4 % (35.3-44.9); Hemoglobin 8.6 g/dL (11.5-15.4); Immature Granulocytes % 0.3 % (0-4); Lymphocytes # 1.2 K/mcL (0.6-4.6); Lymphocytes % 17.4 %; Mean Corpuscular HGB Conc 32.6 g/dL (31.6-35.5); Mean Platelet Volume 10.8 fL (9.4-12.4); Monocytes # 0.4 K/mcL (0.0-1.3); Monocytes % 6.5 %; Neutrophils # 4.8 K/mcL (1.6-8.9); Platelet Count 182 K/mcL (140-400); Red Blood Count 2.87 M/mcL (3.82-4.97); Red Cell Distribution Width 17.6 % (11.5-14.5); Segmented Neutrophils % 71.5 %
[2017-05-27 05:57] LABS: INR 2.4; Prothrombin Time 25.8 Seconds (9.4-12.1)
[2017-05-27 06:04] LABS: Calcium 8.4 mg/dL (8.6-10.8); Potassium 4.5 mEq/L (3.5-4.5)
[2017-05-27] MEDS: *HR* HYDROcodone/Acet 5/325 mg TABLET PO PRN ×3 (06:10→20:55)
[2017-05-27] MEDS: Cholecalciferol (D-3) 1,000 UNIT TABLET PO SCH (08:06)
[2017-05-27] MEDS: Cyanocobalamin (B-12) 1,000 MCG TABLET PO SCH (08:06)
[2017-05-27] MEDS: Lisinopril 20 MG TABLET PO SCH (08:06)
[2017-05-27] MEDS: *HR* Amiodarone 200 MG TABLET PO SCH (08:06)
[2017-05-27] MEDS: Furosemide 40 MG TABLET PO SCH (08:06)
[2017-05-27] MEDS: BIOTIN 1 MG PO SCH (08:07)
--- NOTE | 2017-05-27 13:12 | Internal Med Progress Note ---
Date of Encounter: 05/27/17 Time of Encounter: 13:10 - Assessment and plan (1) Humeral surgical neck fracture Current Visit: Yes Status: Acute Assessment and plan: Patient's here for the surgical neck fracture for Qualifiers: Encounter type: subsequent encounter Fracture type: closed Fracture morphology: unspecified fracture morphology Fracture alignment: nondisplaced Laterality: right Fracture healing: with routine healing Qualified Code(s) : S42.214D - Unspecified nondisplaced fracture of surgical neck of right humerus , subsequent encounter for fracture with routine healing (2) Inability to ambulate due to knee Current Visit: No Status: Resolved (3) Intertrochanteric fracture of left hip Current Visit: No Status: Acute Qualifiers: Encounter type: subsequent encounter Fracture type: closed Fracture alignment: displaced Fracture healing: with routine healing Qualified Code(s ): S72.142D - Displaced intertrochanteric fracture of left femur, subsequent encounter for closed fracture with routine healing - Subjective Interval history: Staff feels patient may good progress now she stood she walked she went to the bathroom with standby so overall much improvement - Constitutional Vitals: Temp Pulse Resp BP Pulse Ox 98.1 F 56 15 131/79 96 05/27/17 07:00 05/27/17 07:00 05/27/17 07:00 05/27/17 07:00 05/27/17 07:00 General appearance: Present: A&O X 3, pleasant, answers questions appropriately. Absent: no acute distress - Head Head exam: Present: atraumatic, normal inspection, normocephalic - Neck Neck exam general surgery: Present: supple, trachea midline. Absent: lymphadenopathy - Respiratory Respiratory exam: Present: CTAB. Absent: accessory muscle use, rales, rhonchi, wheezes - Cardiovascular Cardiovascular exam: Present: RRR, +S1, +S2. Absent: diastolic murmur, gallop, rubs, systolic murmur Internal Medicine: Result - Labs CBC & Chem 7: 05/27/17 05:45 05/27/17 05:45 Labs: Short CBC 05/27/17 Range/Units 05:45 WBC 6.7 (4.3-11.1) K/mcL Hgb 8.6 L (11.5-15.4) g/dL Hct 26.4 L (35.3-44.9) % Plt Count 182 (140-400) K/mcL Neutrophils # 4.8 (1.6-8.9) K/mcL BMP 05/27/17 05:45 Sodium 139 Potassium 4.5 Chloride 110 H Carbon Dioxide 24 BUN 57 H Creatinine 1.70 H Glucose 82 Calcium 8.4 L Got a repeat the BUN and creatinine down the road but they are modestly improved - ABG Interpretation ABG results: PT/INR, D-dimer PT 25.8 Seconds (9.4-12.1) H 05/27/17 05:45 - VTE Documentation of Mechanical Device: Graduated compression elastic hosiery Consult Discharge Plan - Plan Referrals: Gia Bishop MD [Primary Care Provider] - (Follow up with Yadira Raymond 05/22/17 at 11:30 Follow up with Derick Hernandez 06/19/17 at 11:00 Follow up with PCP Gia Anthony at D/C)
--- NOTE | 2017-05-27 16:22 | Internal Med Progress Note ---
Date of Encounter: 05/27/17 Time of Encounter: 09:20 - Assessment and plan (1) DVT prophylaxis Current Visit: Yes Status: Acute Assessment and plan: INR is therapeutic, renewed Coumadin at same dosage. (2) Femur fracture, left Current Visit: No Status: Acute Assessment and plan: Therapy is coming along nicely and she's pleased with progress. Pain is an issue but improving, per her. Qualifiers: Encounter type: initial encounter Femur location: intertrochanteric Fracture type: closed Fracture alignment: displaced Qualified Code(s): S72.142A - Displaced intertrochanteric fracture of left femur, initial encounter for closed fracture (3) Diarrhea Current Visit: Yes Status: Chronic Assessment and plan: Apparently a chronic problem but none in the last day or so. Will follow, clinically. Qualifiers: Diarrhea type: unspecified type Qualified Code(s): R19.7 - Diarrhea, unspecified - Time Spent With Patient less than 15 minutes - Subjective Interval history: NOTE: This Note is a late entry due to EHR access issues. Doing well. Therapy is going well. No new issues. Still some pain, especially at night and with therapy. Can get up to 7 or 8 out of 10. No nausea, dyspnea, cough, chest pain, palpitations, abdominal pain, constipation or diarrhea, headache, fever chills, sweats, or other no complaints. - Constitutional Vitals: Temp Pulse Resp BP Pulse Ox 98.1 F 56 15 131/79 96 05/27/17 07:00 05/27/17 07:00 05/27/17 07:00 05/27/17 07:00 05/27/17 07:00 General appearance: Present: A&O X 3, pleasant, answers questions appropriately. Absent: no acute distress - Head Head exam: Present: atraumatic, normal inspection - Eye Eye exam: Present: normal appearance, scleral icterus. Absent: conjunctival injection, nystagmus Pupils: Present: PERRL - ENT ENT exam: Present: normal exam - Neck Neck exam general surgery: Present: supple, trachea midline - Respiratory Respiratory exam: Present: CTAB. Absent: accessory muscle use, rales, wheezes, tachypnea - Cardiovascular Cardiovascular exam: Present: RRR. Absent: systolic murmur - GI/Abdominal GI/Abdominal exam: Present: normal bowel sounds. Absent: hepatomegaly, splenomegaly - Extremities Exam Extremities exam: Absent: calf tenderness, pedal edema, tenderness - Expanded Lower Extremities Exam Lower Leg exam: Absent: palpable cord, tenderness Neuro vascular tendon exam: Absent: foot drop Gait: Absent: not tested/not observed Internal Medicine: Result - Labs CBC & Chem 7: 05/27/17 05:45 05/27/17 05:45 Labs: Short CBC 05/27/17 Range/Units 05:45 WBC 6.7 (4.3-11.1) K/mcL Hgb 8.6 L (11.5-15.4) g/dL Hct 26.4 L (35.3-44.9) % Plt Count 182 (140-400) K/mcL Neutrophils # 4.8 (1.6-8.9) K/mcL BMP 05/27/17 05:45 Sodium 139 Potassium 4.5 Chloride 110 H Carbon Dioxide 24 BUN 57 H Creatinine 1.70 H Glucose 82 Calcium 8.4 L - ABG Interpretation ABG results: PT/INR, D-dimer PT 25.8 Seconds (9.4-12.1) H 05/27/17 05:45 - VTE Documentation of Mechanical Device: Graduated compression elastic hosiery Consult Discharge Plan - Plan Referrals: Gia Bishop MD [Primary Care Provider] - (Follow up with Yadira Raymond 05/22/17 at 11:30 Follow up with Derick Hernandez 06/19/17 at 11:00 Follow up with PCP Gia Anthony at D/C)
--- NOTE | 2017-05-27 17:29 | Internal Med Progress Note ---
Date of Encounter: 05/27/17 Time of Encounter: 14:10 - Assessment and plan (1) DVT prophylaxis Current Visit: Yes Status: Acute Assessment and plan: Coumadin continues. Recently stable. (2) Femur fracture, left Current Visit: No Status: Acute Assessment and plan: Stable progress, suspect home soon when transfers safe, etc. Qualifiers: Encounter type: initial encounter Femur location: intertrochanteric Fracture type: closed Fracture alignment: displaced Qualified Code(s): S72.142A - Displaced intertrochanteric fracture of left femur, initial encounter for closed fracture (3) Diarrhea Current Visit: Yes Status: Chronic Assessment and plan: Apparently, per her baseline. Qualifiers: Diarrhea type: unspecified type Qualified Code(s): R19.7 - Diarrhea, unspecified - Subjective Interval history: NOTE: This Note is a LATE ENTRY due to EHR access issues. Doing well. Therapy is going well. No new issues. Still some pain, especially at night and with therapy. Pain is improving with each day. No nausea, dyspnea, cough, chest pain, palpitations, abdominal pain, constipation (but did have an episode of diarrhea overnight which she says is her baseline), no headache, fever chills, sweats, or other no complaints. - Constitutional Vitals: Temp Pulse Resp BP Pulse Ox 98.1 F 56 15 131/79 96 05/27/17 07:00 05/27/17 07:00 05/27/17 07:00 05/27/17 07:00 05/27/17 07:00 General appearance: Present: A&O X 3, pleasant, answers questions appropriately. Absent: no acute distress - Head Head exam: Present: atraumatic, normal inspection, normocephalic - Eye Eye exam: Present: EOMI, PERRL, conjuntiva pink, sclera anicteric. Absent: conjunctival injection Pupils: Present: PERRL - Neck Neck exam general surgery: Present: normal inspection, supple, trachea midline. Absent: lymphadenopathy - Respiratory Respiratory exam: Present: CTAB. Absent: accessory muscle use, rales, rhonchi, wheezes - Cardiovascular Cardiovascular exam: Present: RRR, +S1, +S2. Absent: diastolic murmur, gallop, rubs, systolic murmur - GI/Abdominal GI/Abdominal exam: Present: normal bowel sounds, soft, no peritoneal signs. Absent: distended, tenderness Additional comments: Examined in bed. - Neurological Exam Neurological exam: Present: CN II-XII intact, oriented X3, no focal deficits. Absent: pronater drift, facial droop, speech deficit Internal Medicine: Result - Labs CBC & Chem 7: 05/27/17 05:45 05/27/17 05:45 Labs: Short CBC 05/27/17 Range/Units 05:45 WBC 6.7 (4.3-11.1) K/mcL Hgb 8.6 L (11.5-15.4) g/dL Hct 26.4 L (35.3-44.9) % Plt Count 182 (140-400) K/mcL Neutrophils # 4.8 (1.6-8.9) K/mcL BMP 05/27/17 05:45 Sodium 139 Potassium 4.5 Chloride 110 H Carbon Dioxide 24 BUN 57 H Creatinine 1.70 H Glucose 82 Calcium 8.4 L - ABG Interpretation ABG results: PT/INR, D-dimer PT 25.8 Seconds (9.4-12.1) H 05/27/17 05:45 - VTE Documentation of Mechanical Device: Graduated compression elastic hosiery Consult Discharge Plan - Plan Referrals: Gia Bishop MD [Primary Care Provider] - (Follow up with Yadira Raymond 05/22/17 at 11:30 Follow up with Derick Hernandez 06/19/17 at 11:00 Follow up with PCP Gia Anthony at D/C)
[2017-05-27] MEDS: *HR* Warfarin 2 MG TABLET PO SCH (17:32)
[2017-05-28 05:54] LABS: INR 2.4; Prothrombin Time 26.7 Seconds (9.4-12.1)
[2017-05-28] MEDS: *HR* HYDROcodone/Acet 5/325 mg TABLET PO PRN ×2 (06:30→12:46)
[2017-05-28] MEDS: Furosemide 40 MG TABLET PO SCH (08:54)
[2017-05-28] MEDS: *HR* Amiodarone 200 MG TABLET PO SCH (08:54)
[2017-05-28] MEDS: Lisinopril 20 MG TABLET PO SCH (08:54)
[2017-05-28] MEDS: Cyanocobalamin (B-12) 1,000 MCG TABLET PO SCH (08:54)
[2017-05-28] MEDS: BIOTIN 1 MG PO SCH (08:55)
[2017-05-28] MEDS: Ondansetron ODT 4 MG TAB.RAPDIS SL PRN (08:55)
[2017-05-28] MEDS: Cholecalciferol (D-3) 1,000 UNIT TABLET PO SCH (08:55)
--- NOTE | 2017-05-28 13:24 | Internal Med Progress Note ---
Date of Encounter: 05/28/17 Time of Encounter: 13:22 - Assessment and plan (1) Humeral surgical neck fracture Current Visit: Yes Status: Acute Assessment and plan: Patient now is really moving forward. As I said standing at the table with without loss of balance and playing cards. Qualifiers: Encounter type: subsequent encounter Fracture type: closed Fracture morphology: unspecified fracture morphology Fracture alignment: nondisplaced Laterality: right Fracture healing: with routine healing Qualified Code(s) : S42.214D - Unspecified nondisplaced fracture of surgical neck of right humerus , subsequent encounter for fracture with routine healing (2) Intertrochanteric fracture of left hip Current Visit: No Status: Acute Qualifiers: Encounter type: subsequent encounter Fracture type: closed Fracture alignment: displaced Fracture healing: with routine healing Qualified Code(s ): S72.142D - Displaced intertrochanteric fracture of left femur, subsequent encounter for closed fracture with routine healing - Time Spent With Patient less than 15 minutes - Subjective Interval history: Patient standing at the table playing cards this is outstanding improvement considering she did not have to use her hands to stand table. - Constitutional Vitals: Temp Pulse Resp BP Pulse Ox 98.0 F 60 16 127/66 95 05/28/17 06:53 05/28/17 06:53 05/28/17 06:53 05/28/17 06:53 05/28/17 06:53 General appearance: Present: A&O X 3, pleasant, answers questions appropriately. Absent: no acute distress - Head Head exam: Present: atraumatic, normal inspection, normocephalic - Neck Neck exam general surgery: Present: supple, trachea midline. Absent: lymphadenopathy - Respiratory Respiratory exam: Present: CTAB. Absent: accessory muscle use, rales, rhonchi, wheezes - Cardiovascular Cardiovascular exam: Present: RRR, +S1, +S2. Absent: diastolic murmur, gallop, rubs, systolic murmur Internal Medicine: Result - Labs CBC & Chem 7: 05/27/17 05:45 05/27/17 05:45 Labs: Lab is stable on O recheck her Chem-7 - ABG Interpretation ABG results: PT/INR, D-dimer PT 26.7 Seconds (9.4-12.1) H 05/28/17 05:40 - VTE Documentation of Mechanical Device: Graduated compression elastic hosiery Consult Discharge Plan - Plan Referrals: Gia Bishop MD [Primary Care Provider] - (Follow up with Yadira Raymond 05/22/17 at 11:30 Follow up with Derick Hernandez 06/19/17 at 11:00 Follow up with PCP Gia Anthony at D/C)
[2017-05-28] MEDS: *HR* Warfarin 2 MG TABLET PO SCH (17:56)
[2017-05-28] MEDS: traMADol 50 MG TABLET PO PRN (20:25)
[2017-05-29 05:25] LABS: INR 2.5; Prothrombin Time 27.5 Seconds (9.4-12.1)
[2017-05-29 05:34] LABS: Calcium 8.6 mg/dL (8.6-10.8); Potassium 4.2 mEq/L (3.5-4.5)
[2017-05-29] MEDS: *HR* HYDROcodone/Acet 5/325 mg TABLET PO PRN ×3 (06:38→21:20)
[2017-05-29] MEDS: Cyanocobalamin (B-12) 1,000 MCG TABLET PO SCH (08:15)
[2017-05-29] MEDS: Cholecalciferol (D-3) 1,000 UNIT TABLET PO SCH (08:15)
[2017-05-29] MEDS: Lisinopril 20 MG TABLET PO SCH (08:15)
[2017-05-29] MEDS: *HR* Amiodarone 200 MG TABLET PO SCH (08:15)
[2017-05-29] MEDS: Furosemide 40 MG TABLET PO SCH (08:15)
[2017-05-29] MEDS: BIOTIN 1 MG PO SCH (08:16)
[2017-05-29] MEDS: Ondansetron ODT 4 MG TAB.RAPDIS SL PRN (08:24)
--- NOTE | 2017-05-29 12:21 | Physical Med Progress Note ---
Date of Encounter: 05/29/17 Time of Encounter: 12:14 Physical Medicine-PN: Subj Interval history: PMR PCC Note Patient is doing well. Patient ambulated 40 feet CGA with walker. Patient is min A for lower body ADLs for shoes, SBA for all other self care tasks. Patient has had improved endurance, but her endurance remains a barrier to independence. Patient will be discharged to home on 05/31/17 with home health. - Constitutional Vitals: Vital Signs Temp Pulse Resp BP Pulse Ox 05/29/17 07:48 98.6 F 60 16 117/57 95 05/28/17 19:00 98.2 F 66 18 115/54 97 Intake and Output 05/28/17 05/29/17 05/29/17 23:59 07:59 15:59 Intake Total 120 / 120 240 / 240 Balance 120 / 120 240 / 240 Intake: Oral 120 / 120 240 / 240 Other: Meal Dinner Breakfast Percent of Meal Consumed 90% 75% # Voids 1 1 1 Physical Medicine-PN: Obj Data - Labs CBC & Chem 7: 05/27/17 05:45 05/29/17 05:12 Labs: Laboratory Results - last 24 hr 05/29/17 05/29/17 05:12 05:12 PT 27.5 H INR 2.5 Sodium 141 Potassium 4.2 Chloride 109 Carbon Dioxide 26 BUN 60 H Creatinine 1.61 H Est GFR ( Amer) 38 L Est GFR (Non-Af Amer) 32 L BUN/Creatinine Ratio 37 H Glucose 79 Calculated Osmolality 308 H Calcium 8.6 - ABG Interpretation ABG results: PT/INR, D-dimer PT 27.5 Seconds (9.4-12.1) H 05/29/17 05:12 - VTE Documentation of Mechanical Device: Graduated compression elastic hosiery Consult Discharge Plan - Plan Referrals: Gia Bishop MD [Primary Care Provider] - (Follow up with Yadira Raymond 05/22/17 at 11:30 Follow up with Derick Hernandez 06/19/17 at 11:00 Follow up with PCP Gia Anthony at D/C)
[2017-05-29] MEDS: *HR* Warfarin 2 MG TABLET PO SCH (17:38)
[2017-05-30] MEDS: *HR* HYDROcodone/Acet 5/325 mg TABLET PO PRN ×3 (05:05→20:55)
[2017-05-30 05:17] LABS: INR 2.7; Prothrombin Time 30.2 Seconds (9.4-12.1)
[2017-05-30] MEDS: Lisinopril 20 MG TABLET PO SCH (08:14)
[2017-05-30] MEDS: Cholecalciferol (D-3) 1,000 UNIT TABLET PO SCH (08:14)
[2017-05-30] MEDS: Cyanocobalamin (B-12) 1,000 MCG TABLET PO SCH (08:14)
[2017-05-30] MEDS: *HR* Amiodarone 200 MG TABLET PO SCH (08:15)
[2017-05-30] MEDS: Ondansetron ODT 4 MG TAB.RAPDIS SL PRN ×2 (08:15→18:06)
[2017-05-30] MEDS: BIOTIN 1 MG PO SCH (08:15)
[2017-05-30] MEDS: Furosemide 40 MG TABLET PO SCH (08:15)
--- NOTE | 2017-05-30 13:39 | Internal Med Progress Note ---
Date of Encounter: 05/30/17 Time of Encounter: 13:37 - Assessment and plan (1) Humeral surgical neck fracture Current Visit: Yes Status: Acute Assessment and plan: Patient's here for rehabilitation after hip fracture. Qualifiers: Encounter type: subsequent encounter Fracture type: closed Fracture morphology: unspecified fracture morphology Fracture alignment: nondisplaced Laterality: right Fracture healing: with routine healing Qualified Code(s) : S42.214D - Unspecified nondisplaced fracture of surgical neck of right humerus , subsequent encounter for fracture with routine healing (2) Intertrochanteric fracture of left hip Current Visit: Yes Status: Acute Assessment and plan: Abusively patient is here after hip fracture and repair for deconditioning and rehabilitation Qualifiers: Encounter type: subsequent encounter Fracture type: closed Fracture alignment: displaced Fracture healing: with routine healing Qualified Code(s ): S72.142D - Displaced intertrochanteric fracture of left femur, subsequent encounter for closed fracture with routine healing - Time Spent With Patient less than 15 minutes - Subjective Interval history: Doing well,did some cooking today and is tolerating therapy very well - Constitutional Vitals: Temp Pulse Resp BP Pulse Ox 98.0 F 60 16 132/62 96 05/30/17 06:00 05/30/17 06:00 05/30/17 06:00 05/30/17 06:00 05/30/17 06:00 General appearance: Present: A&O X 3, pleasant, answers questions appropriately. Absent: no acute distress - Head Head exam: Present: atraumatic, normal inspection, normocephalic - Neck Neck exam general surgery: Present: supple, trachea midline. Absent: lymphadenopathy - Respiratory Respiratory exam: Present: CTAB. Absent: accessory muscle use, rales, rhonchi, wheezes - Cardiovascular Cardiovascular exam: Present: RRR, +S1, +S2. Absent: diastolic murmur, gallop, rubs, systolic murmur Internal Medicine: Result - Labs CBC & Chem 7: 05/27/17 05:45 05/29/17 05:12 Labs: Renal function is abnormal but is chronic - ABG Interpretation ABG results: PT/INR, D-dimer PT 30.2 Seconds (9.4-12.1) H 05/30/17 05:00 - VTE Documentation of Mechanical Device: Graduated compression elastic hosiery Consult Discharge Plan - Plan Referrals: Gia Bishop MD [Primary Care Provider] - (Follow up with Yadira Raymond 05/22/17 at 11:30 Follow up with Derick Hernandez 06/19/17 at 11:00 Follow up with PCP Gia Anthony at D/C)
[2017-05-30] MEDS: *HR* Warfarin 2 MG TABLET PO SCH (18:06)
[2017-05-31 05:10] LABS: INR 2.8; Prothrombin Time 30.6 Seconds (9.4-12.1)
[2017-05-31] MEDS: Ondansetron ODT 4 MG TAB.RAPDIS SL PRN (06:46)
[2017-05-31] MEDS: *HR* HYDROcodone/Acet 5/325 mg TABLET PO PRN (06:46)
[2017-05-31 07:32] VITALS: BP 133/66
[2017-05-31] MEDS: Cyanocobalamin (B-12) 1,000 MCG TABLET PO SCH (08:42)
[2017-05-31] MEDS: Furosemide 40 MG TABLET PO SCH (08:42)
[2017-05-31] MEDS: *HR* Amiodarone 200 MG TABLET PO SCH (08:43)
[2017-05-31] MEDS: BIOTIN 1 MG PO SCH (08:43)
[2017-05-31] MEDS: Cholecalciferol (D-3) 1,000 UNIT TABLET PO SCH (08:43)
[2017-05-31] MEDS: Lisinopril 20 MG TABLET PO SCH (08:43)
--- NOTE | 2017-05-31 11:28 | Discharge Summary ---
Date of Encounter: 05/31/17 Time of Encounter: 11:26 - Discharge Diagnosis (1) Humeral surgical neck fracture Priority: Primary Status: Acute Qualifiers: Encounter type: subsequent encounter Fracture type: closed Fracture morphology: unspecified fracture morphology Fracture alignment: nondisplaced Laterality: right Fracture healing: with routine healing Qualified Code(s) : S42.214D - Unspecified nondisplaced fracture of surgical neck of right humerus , subsequent encounter for fracture with routine healing (2) Intertrochanteric fracture of left hip Priority: Primary Status: Acute Qualifiers: Encounter type: subsequent encounter Fracture type: closed Fracture alignment: displaced Fracture healing: with routine healing Qualified Code(s ): S72.142D - Displaced intertrochanteric fracture of left femur, subsequent encounter for closed fracture with routine healing - Discharge Medications Home Medications: Allopurinol [Zyloprim 100 MG] 100 mg PO BID 02/26/17 [History] Amiodarone [Cordarone] 400 mg PO QAM 02/26/17 [History] Biotin 1 mg PO DAILY 02/26/17 [History] Calcitriol [Rocaltrol] 0.25 mcg PO DAILY 02/26/17 [History] Cholecalciferol (D-3) [Vitamin D] 1,000 unit PO DAILY 02/26/17 [History] Cyanocobalamin (Vitamin B-12) [Vitamin B-12] 250 mcg PO DAILY 02/26/17 [History] Enalapril Maleate [Vasotec] 20 mg PO BID 02/26/17 [History] Metoprolol [Lopressor] 25 mg PO BID 02/26/17 [History] Omeprazole [PriLOSEC] 20 mg PO BID 02/26/17 [History] Potassium Chloride [Klor-Con 10] 10 meq PO DAILY 02/26/17 [History] Furosemide [Lasix] 40 mg PO BID #30 05/09/17 [Rx] Allergies/Adverse Reactions: 3 Allergy/AdvReac Type Severity Reaction Status Date / Time Sulfa (Sulfonamide Allergy See Verified 05/05/17 11:42 Antibiotics) Comments Date of admission: 05/09/17 20:51 Primary care physician: Gia Bishop MD Consults: 05/09/17 21:45 Consult to Occupational Therapy [CONS] Routine Comment: Evaluate, develop and implement POC Reason for Consult: TREAT AND EVAL Consult to Physical Therapy [CONS] Routine Comment: Evaluate, develop and implement POC Reason for Consult: TREAT AND EVAL Consult to Recreational Therapy [CONS] Routine Comment: Evaluate, develop and implement POC Consult to Manager Book [CONS] Routine Reason for SW Consult: DISCHARGE PLANNING 05/13/17 14:27 Consult to Psychology [CONS] Routine Consulting Provider: Batsheva Harper Reason for Consult: fearfull Call Completed: Yes 05/24/17 10:46 Consult to Wound Care [CONS] Routine Reason for Consult: Wound on bottom Call Completed: Yes Discharging clinician: Andrea Allen Anticipated date of discharge: 05/31/17 - Patient Status Disposition: Home, Self-Care Condition: Good Functional capacity at discharge: uses cane/walker Overall status at discharge: patient is progressing back to baseline - Discharge Instructions Follow Up With: Gia Bishop MD [Primary Care Provider] - 06/21/17 10:40 am () Derick Hernandez MD [Partnered Physician] - 06/19/17 11:00 am - Diet and Activity Activity: ambulate only with your walker Diet: diabetic diet Interval History: Patient presented after surgery for intertrochanteric fracture of her femur. She was observed here for rehabilitation.. Hospital course: Ms. Wood is a 71 year old female Patient arrived unable to ambulate was standing cooking and ambulating short distances with a walker upon discharge. She does have help at home with family as follow-up appointment and states she has pain meds at home. - Time Spent with Patient Total time spent providing and/or coordinating discharge services: Less than 30 minutes - Constitutional Vitals: Temp Pulse Resp BP Pulse Ox 97.8 F 61 16 133/66 95 05/31/17 07:31 05/31/17 07:31 05/31/17 07:31 05/31/17 07:31 05/31/17 07:31 General appearance: Present: A&O X 3, pleasant, answers questions appropriately. Absent: no acute distress - Head Head exam: Present: atraumatic, normal inspection, normocephalic - Neck Neck exam general surgery: Present: supple, trachea midline. Absent: lymphadenopathy - Respiratory Respiratory exam: Present: CTAB. Absent: accessory muscle use, rales, rhonchi, wheezes - Cardiovascular Cardiovascular exam: Present: RRR, +S1, +S2. Absent: diastolic murmur, gallop, rubs, systolic murmur - VTE Documentation of Mechanical Device: Graduated compression elastic hosiery
--- NOTE | 2017-05-31 11:35 | Physician Discharge Referral ---
Home Health/Hosp Referral Info Transfer to: Home Health Provider in Charge Post Discharge: PCP - Diagnosis (1) Humeral surgical neck fracture Priority: Primary Status: Acute (2) Intertrochanteric fracture of left hip Priority: Primary Status: Acute - Respiratory Orders Smoking Cessation: Smoking cessation has been advised. For more information, call the [place] Tobacco Quit Line at 9-093-JQUN-NOW. - Diet/Nutrition Diet/Nutrition Orders: No Concentrated Sweets - Activity Activity Orders: Walker - Services Needed Following services are medically necessary services: Nursing, Physical Therapy - Transfer Medications Home Medications: Allopurinol [Zyloprim 100 MG] 100 mg PO BID 02/26/17 [History] Amiodarone [Cordarone] 400 mg PO QAM 02/26/17 [History] Biotin 1 mg PO DAILY 02/26/17 [History] Calcitriol [Rocaltrol] 0.25 mcg PO DAILY 02/26/17 [History] Cholecalciferol (D-3) [Vitamin D] 1,000 unit PO DAILY 02/26/17 [History] Cyanocobalamin (Vitamin B-12) [Vitamin B-12] 250 mcg PO DAILY 02/26/17 [History] Enalapril Maleate [Vasotec] 20 mg PO BID 02/26/17 [History] Metoprolol [Lopressor] 25 mg PO BID 02/26/17 [History] Omeprazole [PriLOSEC] 20 mg PO BID 02/26/17 [History] Potassium Chloride [Klor-Con 10] 10 meq PO DAILY 02/26/17 [History] Furosemide [Lasix] 40 mg PO BID #30 05/09/17 [Rx] Allergies/Adverse Reactions: 3 Allergy/AdvReac Type Severity Reaction Status Date / Time Sulfa (Sulfonamide Allergy See Verified 05/05/17 11:42 Antibiotics) Comments Certification: Further, I certify that my clinical findings support that this patient is homebound (i.e. absences from home require considerable and taxing effort and are for medical reasons or holiness services or infrequently or short duration when for other reasons) because: Homebound Reason: Patient requires assistance of a person or device to safely leave home Attestation: My signature below is to certify that this patient is under my care and that I, or nurse practitioner, or a physician's after school program assistant working with me, has a face-to -face encounter with this patient.
== END 2017-05-31 10:15 | disposition home health service (06) | DRG 560 ==
LOC: INPGRE 20:51
PROVIDERS: ADMIT Internal Medicine; ATTEND Internal Medicine